=== PATIENT | female | born 1940 | race Caucasian/White ===

== ENCOUNTER 2018-10-06 14:55 | Inpatient (IN) | payer OTHER ==
--- NOTE | 2018-10-06 15:32 | RAD REPORT ---
EXAM DESCRIPTION: RAD - Humerus Left - 10/06/2018 3:26 pm CLINICAL HISTORY: fall FINDINGS: Left humerus and left forearm- multiple views are submitted Osteopenia is noted. Arthritic changes are noted, particularly about the wrist. No acute fracture or dislocation observed.
[2018-10-06 15:41] LABS: Absolute Lymphocytes (CBC) 1.1 K/uL (0.7-4.9); Absolute Monocytes 1.9 K/uL (0.1-1.3); Absolute Neutrophil 16.5 K/uL (1.8-8.0); Basophils % 0.3 % (0-1.3); Eosinophils % 0.1 % (0-4.4); Hematocrit 45.3 % (36.0-45.0); Lymphocytes % 5.5 % (15.3-44.8); MCH 28.5 pg (27.0-35.0); Monocytes % 9.9 % (3.3-12.3); RBC Red Blood Cell Count 5.39 M/uL (3.86-4.86)
[2018-10-06] MEDS ORDERED: FENTANYL CITR 100 MCG/2 ML ONE (15:47)
[2018-10-06] MEDS ORDERED: ONDANSETRON 4 MG/2 ML VIAL ONE (15:48)
[2018-10-06 16:03] LABS: Albumin 4.1 g/dL (3.4-5.0); Bilirubin Total 1.5 mg/dL (0.2-1.0); Potassium 4.2 mmol/L (3.5-5.1)
--- NOTE | 2018-10-06 16:22 | RAD REPORT ---
EXAM DESCRIPTION: CT - Head C Spine Cap Wo Con - 10/06/2018 4:00 pm TECHNIQUE: Computed axial tomography of the head and cervical spine was obtained. Coronal and sagitt al reconstruction was performed Computed axial tomography of the chest, abdomen and pelvis was obtained. Contrast was not requested. All CT scans are performed using dose optimization technique as appropriate and may include automated exposure control or mA/KV adjustment according to patient size. CLINICAL HISTORY: Head and neck injury with chest and abdominal pain status post fall COMPARISON: Abdominal CT February 2018 FINDINGS: An intracranial bleed is not seen. The ventricles are normal in caliber. 2 centimeter low-density area within the right parietal lobe ma y represent an old infarction. Fluid within the sinuses/mastoids is not seen. A cervical fracture is not seen. No dislocation is noted Mild anterior subluxation of C4 on C5 is present. Anterior fusion of C5-C6 is seen. The evaluation of mediastinum, ashish, vessels, solid organs and bowel are limited secondary to the lac k of contrast administration. A mediastinal hematoma is not noted. A pleural effusion is not seen. A lung contusion is not present. The liver,spleen, pancreas, adrenals,kidneys and bladder do not demonstrate a traumatic injury. Small to moderate hiatal hernia. Postsurgical changes involve the right ilium Mild anterior subluxation of L4 on L5. Stable lucency is present within L1 vertebral body. IMPRESSION: 1. No acute intracranial abnormality is seen. 2. A cervical fracture is not visualized. 3. No traumatic abnormality involving the chest/abdomen/pelvis.
[2018-10-06] MEDS ORDERED: TRAMADOL HCL 50 MG TAB ONE (16:33)
[2018-10-06 16:47] LABS: Urine White Blood Cell Casts OK
[2018-10-06 16:48] LABS: Blood Morphology Comment NOT SEEN (NOT SEEN); Platelet Estimate ADEQ
[2018-10-06 16:55] LABS: Urine Blood 1+ (NEG); Urine Glucose TRACE (NEG); Urine Protein 2+ (NEG); Urine pH 6.5 (5.0-7.0)
--- NOTE | 2018-10-06 17:48 | ER ---
Nurse's Notes [facility] Name: Mary Jane Faith Age: 78 yrs Sex: Female : 1940 Arrival Date: 10/06/2018 Time: 14:57 Bed 14 Private MD: Diagnosis: Syncope and collapse;Contusion of left arm;Contusion of left eye;Skin tear right elbow;Hyponatremia Presentation: 10/06 14:59 Presenting complaint: EMS states: pt reports falling form standing last night, family tw2 states this morning because breakfast was out, mastectomy, chf, breast ca, copd, chf, diverticulitis, gerd, hypertension, hyperthyroid, vs hypertensive vs. Transition of care: patient was not received from another setting of care. Onset of symptoms was October 06, 2018. Risk Assessment: Do you want to hurt yourself or someone else? Patient reports no desire to harm self or others. Care prior to arrival: Medication(s) given: zofran IM. 14:59 Method Of Arrival: EMS: [facility] tw2 14:59 Acuity: JOSIE 2 tw2 15:00 Mechanism of Injury: Fall from standing position. Trauma event details: Injury occurred tw2 in the [facility]. 16:31 Initial Sepsis Screen: Does the patient meet any 2 criteria? No. Patient's initial tw2 sepsis screen is negative. Does the patient have a suspected source of infection? No. Patient's initial sepsis screen is negative. Triage Assessment: 15:00 General: Appears in no apparent distress. Behavior is appropriate for age. Pain: tw2 Complains of pain in right arm and left arm and neck. Trauma Activation: Alert Physician: ED Physician; Name: ; Notified At: ; Arrived At: Physician: General Surgeon; Name: ; Notified At: ; Arrived At: Physician: Radiology; Name: ; Notified At: ; Arrived At: Physician: Respiratory; Name: ; Notified At: ; Arrived At: Physician: Lab; Name: ; Notified At: ; Arrived At: Historical: - Allergies: 15:08 Sulfa (Sulfonamide Antibiotics); tw2 15:08 Morphine; tw2 15:08 Cortisone; tw2 15:08 Codeine; tw2 15:08 Latex, Natural Rubber; tw2 - Home Meds: 15:08 Xarelto oral oral [Active]; Aspirin Oral [Active]; Lasix Oral [Active]; Coreg Oral tw2 [Active]; Tramadol Oral [Active]; Nexium Oral [Active]; Lipitor Oral [Active]; Aldactone Oral [Active]; Cipro Oral [Active]; Levofloxacin Oral [Active]; - PMHx: 15:08 CHF; kidney disease; Hypertension; hyperthyroidism; tw2 - PSHx: 15:08 double mastectomy; tw2 - Immunization history:: Adult Immunizations. - Social history:: Smoking status: . - Immunization history: Last tetanus immunization: unknown. - Ebola Screening: : Patient denies travel to an Ebola-affected area in the 21 days before illness onset. Screenin:01 Abuse screen: Denies threats or abuse. Nutritional screening: No deficits noted. tw2 Tuberculosis screening: No symptoms or risk factors identified. Fall Risk Secondary diagnosis (15 points) impaired mobility. Primary Survey: 15:00 A: Airway: patent. Breathing/Chest: Respiratory pattern: regular, Respiratory effort: tw2 spontaneous, unlabored, Breath sounds: clear, bilaterally. Chest inspection: symmetrical rise and fall of the chest. Circulation: Heart tones present. Disability Alert. 16:00 Reassessment Airway Airway Patent Breathing/Chest Respiratory pattern Regular tw2 Respiratory effort Spontaneous Unlabored Circulation Heart tones Present Disability Alert. Secondary Survey: 15:20 HEENT: Face Other bruising noted to left eye brow. Gastrointestinal: Abdomen is flat, tw2 Bowel sounds present in all quadrants. : No signs and/or symptoms were reported regarding the genitourinary system. Musculoskeletal: Range of motion: intact in all extremities. Assessment: 15:00 General: Appears in no apparent distress. Behavior is cooperative, appropriate for age. tw2 Pain: Complains of pain in right arm and left arm. Neuro: Level of Consciousness is awake, alert, obeys commands. 15:00 Cardiovascular: Heart tones S1 S2 Capillary refill is > 3 seconds. Respiratory: Airway tw2 is patent Respiratory effort is even, unlabored, Respiratory pattern is regular, symmetrical, Breath sounds are clear bilaterally. GI: No signs and/or symptoms were reported involving the gastrointestinal system. : No signs and/or symptoms were reported regarding the genitourinary system. EENT: No signs and/or symptoms were reported regarding the EENT system. Derm: Skin is fragile, is thin, has skin tears on noted to b/l arms and legs, tegaderm dressing applied to right elbow and right glez Skin is dry, Skin temperature is cool Bruising that is dark purple, on right arm and left leg and right leg and left arm. Musculoskeletal: Range of motion: intact in all extremities. 15:49 Reassessment: CT order changed to traumagram without contrast due to pt hx of kidney iw disease, per ERP, will also hold of on IV insertion, pt not complaining of pain, family requests to administer only PO meds for now, ERP agrees. 16:20 Reassessment: Patient appears in no apparent distress at this time. Patient and/or tw2 family updated on plan of care and expected duration. Pain level reassessed. Patient is alert, oriented x 3, equal unlabored respirations, skin warm/dry/pink. pt had urinated and missed the bed bennett, pt and bed was cleaned, linens changed new brief applied. 17:12 Reassessment: Patient appears in no apparent distress at this time. Patient and/or tw2 family updated on plan of care and expected duration. Pain level reassessed. Patient is alert, oriented x 3, equal unlabored respirations, skin warm/dry/pink. 18:02 Reassessment: Patient appears in no apparent distress at this time. Patient and/or tw2 family updated on plan of care and expected duration. Pain level reassessed. Patient is alert, oriented x 3, equal unlabored respirations, skin warm/dry/pink. Dr. Cee notified family of need to keep in the hospital and the need for IV in her foot at this time. charge nurse Suzette,ZENOBIA notified at this time. 19:00 Reassessment: Patient appears in no apparent distress at this time. Patient and/or aa1 family updated on plan of care and expected duration. Pain level reassessed. Patient is alert, oriented x 3, equal unlabored respirations, skin warm/dry/pink. Bed assignment received; will call report once floor has completed their shift change report. 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 19:52 Reassessment: Patient appears in no apparent distress at this time. Patient is alert, aa1 oriented x 3, equal unlabored respirations, skin warm/dry/pink. Report given to Grace on 4th floor. Vital Signs: 15:09 BP 127 / 117; Pulse 75; Resp 16; Temp 97.8(TE); Pulse Ox 95% on R/A; Weight 54.43 kg tw2 (M); Height 5 ft. 5 in. (165.10 cm) (R); Pain 8/10; 15:45 BP 139 / 91 LL; Pulse 72; Resp 16; Pulse Ox 98% on R/A; tw2 16:30 BP 130 / 87; Pulse 76; Resp 22; Pulse Ox 98% on R/A; tw2 17:11 BP 141 / 99; Pulse 75; Resp 19; Pulse Ox 100% on R/A; tw2 18:01 BP 126 / 92; Pulse 76; Resp 14; Pulse Ox 100% on R/A; tw2 19:00 BP 134 / 69; Pulse 78; Resp 20; Temp 97.9; Pulse Ox 100% on R/A; aa1 19:58 BP 125 / 56; Pulse 80; Resp 18; Pulse Ox 99% on R/A; aa1 15:09 Body Mass Index 19.97 (54.43 kg, 165.10 cm) tw2 Carolin Coma Score: 15:09 Eye Response: spontaneous(4). Verbal Response: oriented(5). Motor Response: obeys tw2 commands(6). Total: 15. 15:45 Eye Response: spontaneous(4). Verbal Response: oriented(5). Motor Response: obeys tw2 commands(6). Total: 15. 19:00 Eye Response: spontaneous(4). Verbal Response: oriented(5). Motor Response: obeys aa1 commands(6). Total: 15. 19:58 Eye Response: spontaneous(4). Verbal Response: oriented(5). Motor Response: obeys aa1 commands(6). Total: 15. Trauma Score (Adult): 15:09 Eye Response: spontaneous(1); Verbal Response: oriented(1); Motor Response: obeys tw2 commands(2); Systolic BP: > 89 mm Hg(4); Respiratory Rate: 10 to 29 per min(4); Rush Score: 15; Trauma Score: 12 15:45 Eye Response: spontaneous(1); Verbal Response: oriented(1); Motor Response: obeys tw2 commands(2); Systolic BP: > 89 mm Hg(4); Respiratory Rate: 10 to 29 per min(4); Carolin Score: 15; Trauma Score: 12 ED Course: 14:57 Patient arrived in ED. hj 14:58 Ryan Cee MD is Attending Physician. ps1 14:58 Chante Jones RN is Primary Nurse. tw2 14:58 Patient maintains SpO2 saturation greater than 95% on room air. Thermoregulation: warm tw2 blanket given to patient. 15:01 Triage completed. tw2 15:01 Arm band placed on. tw2 15:02 Placed in gown. Side rails up X2. Adult w/ patient. pvc monitor on. Pulse ox on. tw2 NIBP on. Warm blanket given. 15:15 Note: Per Dr. Cee to not wait on labs for CT. vr 15:26 Radiology exam delayed due to IV insertion attempt and/or patient not having jb2 appropriate IV at this time. 15:37 Missed attempt(s): 22 gauge in left antecubital area. per ZENOBIA Ashley, blood collected. tw2 Bleeding controlled, band aid applied, catheter tip intact. 15:55 Humerus Left XRAY In Process Unspecified. EDMS 15:55 Forearm Left XRAY In Process Unspecified. EDMS 16:00 Head C Spine Cap Wo Con In Process Unspecified. EDMS 16:01 CT completed. Patient tolerated procedure well. Patient moved back from CT. nj 17:46 Sofia Jacobsen MD is Hospitalizing Provider. ps1 18:19 Inserted saline lock: 24 gauge in left ,using aseptic technique. ankle. hb 19:00 Report given to ZENOBIA Magana. tw2 19:16 No provider procedures requiring assistance completed. Patient admitted, IV remains in aa1 place. Administered Medications: 16:23 Not Given (no iv line at this): Zofran 4 mg IVP once; over 2 minutes tw2 16:24 Not Given (no iv line at this time, pts family refused multiple sticks): fentaNYL (PF) tw2 25 mcg IVP once 16:29 Drug: traMADol 50 mg Route: PO; tw2 18:04 Follow up: Response: No adverse reaction; Pain is decreased tw2 18:37 Drug: Tetanus-Diphtheria Toxoid Adult 0.5 ml {Religious Activities Director: [employer]. Exp: tw2 11/11/2020. Lot #: [id number]. } Route: IM; Site: left deltoid; 19:17 Follow up: Response: No adverse reaction tw2 Intake: 16:30 PO: 50ml (Water); Total: 50ml. tw2 Outcome: 17:47 Decision to Hospitalize by Provider. ps1 18:29 Patient's length of stay in the Emergency Department was greater than 2 hours. decision tw2 to admitPatient's length of stay extended due to 20:02 Admitted to Med/surg accompanied by tech, family with patient, via stretcher, room 409, aa1 with chart, Report called to Grace 20:02 Condition: stable 20:02 Discharge instructions given to patient, family, Instructed on the need for admit, Demonstrated understanding of instructions. 20:02 Patient left the ED. aa1 Signatures: Dispatcher [employer] EDMS Izzy Lizarraga RN RN aa1 Vazquez Lee jb2 Madelyn Faria, Ondina Mejia RN vr Dion Hanson RN RN hj Baxter, Heather, RN RN hb Wise, Tara, RN RN tw2 Rylan Borja Phillip, MD MD ps1 Corrections: (The following items were deleted from the chart) 15:26 15:[address] via stretcher. vr jb2 16:11 15:09 BP 127 / 117; Pulse 75bpm; Resp 16bpm; Pulse Ox 95% RA; tw2 tw2 18:28 15:00 Neuro: Level of Consciousness is awake, alert, obeys commands, tw2 tw2
--- NOTE | 2018-10-06 17:48 | EDPHYS ---
Physician Documentation [facility] Name: Mary Jane Faith Age: 78 yrs Sex: Female : 1940 Arrival Date: 10/06/2018 Time: 14:57 Bed 14 Private MD: ED Physician Ryan Cee HPI: 10/06 15:08 This 78 yrs old Female presents to ER via EMS with complaints of fall, head ps1 injury. 15:08 fall from standing height, prolonged downtime with pooling in left arm. On xarelto. ps1 Possibly > 12 hours. Pain in left shoulder and ribs bilat. AOx3. Pain rated as moderate. No remitting factors. Worse with movement. . Historical: - Allergies: 15:08 Sulfa (Sulfonamide Antibiotics); tw2 15:08 Morphine; tw2 15:08 Cortisone; tw2 15:08 Codeine; tw2 15:08 Latex, Natural Rubber; tw2 - Home Meds: 15:08 Xarelto oral oral [Active]; Aspirin Oral [Active]; Lasix Oral [Active]; Coreg Oral tw2 [Active]; Tramadol Oral [Active]; Nexium Oral [Active]; Lipitor Oral [Active]; Aldactone Oral [Active]; Cipro Oral [Active]; Levofloxacin Oral [Active]; - PMHx: 15:08 CHF; kidney disease; Hypertension; hyperthyroidism; tw2 - PSHx: 15:08 double mastectomy; tw2 - Immunization history:: Adult Immunizations. - Social history:: Smoking status: . - Immunization history: Last tetanus immunization: unknown. - Ebola Screening: : Patient denies travel to an Ebola-affected area in the 21 days before illness onset. ROS: 15:08 Constitutional: Negative for fever, chills, and weight loss, Eyes: Negative for injury, ps1 pain, redness, and discharge, Cardiovascular: Negative for chest pain, palpitations, and edema, Respiratory: Negative for shortness of breath, cough, wheezing, and pleuritic chest pain, Abdomen/GI: Negative for abdominal pain, nausea, vomiting, diarrhea, and constipation. 15:08 MS/extremity: Positive for contusion, ecchymosis, pain, of the left arm, additionally has pain in lower ribs bilaterally. . Exam: 15:08 Constitutional: This is a well developed, well nourished patient who is awake, alert, ps1 and in no acute distress. 15:08 Respiratory: Lungs have equal breath sounds bilaterally, clear to auscultation and percussion. No rales, rhonchi or wheezes noted. No increased work of breathing, no retractions or nasal flaring. Abdomen/GI: Soft, non-tender, with normal bowel sounds. No distension or tympany. No guarding or rebound. No evidence of tenderness throughout. Back: No spinal tenderness. No costovertebral tenderness. Full range of motion. 15:08 Neuro: Awake and alert, GCS 15, oriented to person, place, time, and situation. Cranial nerves II-XII grossly intact. Sensory grossly intact. Psych: Awake, alert, with orientation to person, place and time. Behavior, mood, and affect are within normal limits. 15:08 Constitutional: The patient appears in no acute distress, alert. 15:08 Head/face: Noted is contusion, that is superficial, of the left eye, erythema, that is mild. 15:08 Chest/axilla: Inspection: normal, Palpation: tenderness, that is moderate, of the diaphragm, Breasts: bilateral mastectomies. 15:08 Skin: Appearance: normal except for affected area, petechiae, noted on the right leg and left leg and left arm, ecchymosis. Vital Signs: 15:09 BP 127 / 117; Pulse 75; Resp 16; Temp 97.8(TE); Pulse Ox 95% on R/A; Weight 54.43 kg tw2 (M); Height 5 ft. 5 in. (165.10 cm) (R); Pain 8/10; 15:45 BP 139 / 91 LL; Pulse 72; Resp 16; Pulse Ox 98% on R/A; tw2 16:30 BP 130 / 87; Pulse 76; Resp 22; Pulse Ox 98% on R/A; tw2 17:11 BP 141 / 99; Pulse 75; Resp 19; Pulse Ox 100% on R/A; tw2 18:01 BP 126 / 92; Pulse 76; Resp 14; Pulse Ox 100% on R/A; tw2 19:00 BP 134 / 69; Pulse 78; Resp 20; Temp 97.9; Pulse Ox 100% on R/A; aa1 19:58 BP 125 / 56; Pulse 80; Resp 18; Pulse Ox 99% on R/A; aa1 15:09 Body Mass Index 19.97 (54.43 kg, 165.10 cm) tw2 Hume Coma Score: 15:09 Eye Response: spontaneous(4). Verbal Response: oriented(5). Motor Response: obeys tw2 commands(6). Total: 15. 15:45 Eye Response: spontaneous(4). Verbal Response: oriented(5). Motor Response: obeys tw2 commands(6). Total: 15. 19:00 Eye Response: spontaneous(4). Verbal Response: oriented(5). Motor Response: obeys aa1 commands(6). Total: 15. 19:58 Eye Response: spontaneous(4). Verbal Response: oriented(5). Motor Response: obeys aa1 commands(6). Total: 15. Trauma Score (Adult): 15:09 Eye Response: spontaneous(1); Verbal Response: oriented(1); Motor Response: obeys tw2 commands(2); Systolic BP: > 89 mm Hg(4); Respiratory Rate: 10 to 29 per min(4); Hume Score: 15; Trauma Score: 12 15:45 Eye Response: spontaneous(1); Verbal Response: oriented(1); Motor Response: obeys tw2 commands(2); Systolic BP: > 89 mm Hg(4); Respiratory Rate: 10 to 29 per min(4); Hume Score: 15; Trauma Score: 12 MDM: 15:14 Patient medically screened. ps1 17:47 Data reviewed: vital signs, nurses notes, lab test result(s), EKG, radiologic studies, ps1 and as a result, I will admit patient. Counseling: I had a detailed discussion with the patient and/or guardian regarding: the historical points, exam findings, and any diagnostic results supporting the discharge/admit diagnosis, lab results, radiology results, the need for further work-up and treatment in the hospital. 10/06 15:08 Order name: CBC with Diff; Complete Time: 16:49 ps1 10/06 15:08 Order name: Creatinine for Radiology; Complete Time: 16:23 ps1 10/06 15:08 Order name: Type And Screen; Complete Time: 16:23 ps1 10/06 15:08 Order name: CMP; Complete Time: 16:23 ps1 10/06 15:08 Order name: CK; Complete Time: 16:23 [facility] 10/06 16:27 Order name: Urine Dipstick--Ancillary (enter results); Complete Time: 17:21 10/06 15:08 Order name: Humerus Left XRAY; Complete Time: 15:56 [facility] 10/06 15:08 Order name: Forearm Left XRAY [facility] 10/06 15:56 Order name: Head C Spine Cap Wo Con; Complete Time: 16:26 [facility] 10/06 16:46 Order name: CBC Smear Scan; Complete Time: 16:49 [facility] 10/06 17:30 Order name: ABO/RH no charge; Complete Time: 17:43 [facility] 10/06 15:08 Order name: Labs collected and sent; Complete Time: 15:37 [facility] 10/06 15:08 Order name: Urine Dipstick-Ancillary (obtain specimen); Complete Time: 16:24 ps1 Administered Medications: 16:23 Not Given (no iv line at this): Zofran 4 mg IVP once; over 2 minutes tw2 16:24 Not Given (no iv line at this time, pts family refused multiple sticks): fentaNYL (PF) tw2 25 mcg IVP once 16:29 Drug: traMADol 50 mg Route: PO; tw2 18:04 Follow up: Response: No adverse reaction; Pain is decreased tw2 18:37 Drug: Tetanus-Diphtheria Toxoid Adult 0.5 ml {Brewing Director: [employer]. Exp: tw2 11/11/2020. Lot #: [id number]. } Route: IM; Site: left deltoid; 19:17 Follow up: Response: No adverse reaction tw2 Disposition: 10/06/18 17:47 Hospitalization ordered by Sofia Jacobsen for Observation. Preliminary diagnosis are Syncope and collapse, Contusion of left arm, Contusion of left eye, Skin tear right elbow, Hyponatremia. - Bed requested for Telemetry/MedSurg (observation). - Status is Observation. aa1 - Condition is Stable. - Problem is new. - Symptoms have improved. UTI on Admission? No Signatures: Dispatcher [employer] EDMS Elizabeth Babin Alissa, RN RN aa1 Chante Jones RN RN tw2 Ryan Cee MD MD ps1 Corrections: (The following items were deleted from the chart) 15:56 15:54 Head C Spine CAP W Con+CT.RAD.BRZ ordered. EDMS EDMS 18:49 17:47 Hospitalization Ordered by Sofia Jacobsen MD for Observation. Preliminary bd diagnosis is Syncope and collapse; Contusion of left arm; Contusion of left eye; Skin tear right elbow; Hyponatremia. Bed requested for Telemetry/MedSurg (observation). Status is Observation. Condition is Stable. Problem is new. Symptoms have improved. UTI on Admission? No. ps1 20:02 18:49 10/06/2018 17:47 Hospitalization Ordered by Sofia Jacobsen MD for Observation. aa1 Preliminary diagnosis is Syncope and collapse; Contusion of left arm; Contusion of left eye; Skin tear right elbow; Hyponatremia. Bed requested for Telemetry/MedSurg (observation). Status is Observation. Condition is Stable. Problem is new. Symptoms have improved. UTI on Admission? No. bd
[2018-10-06] MEDS ORDERED: TETANUS & DIPHTHERIA TOX,ADULT 0.5 ML VIAL ONE (18:40)
[2018-10-06] MEDS ORDERED: ONDANSETRON 4 MG/2 ML VIAL IV PRN (20:43)
[2018-10-06] MEDS: NA CHLORIDE 0.9% 1,000 ML IV SCH (21:39)
[2018-10-06] MEDS: ACETAMINOPHEN 500 MG TAB PO PRN (22:03)
--- NOTE | 2018-10-06 22:49 | P.HP ---
Certification for Inpatient Patient admitted to: Observation With expected LOS: <2 Midnights Practitioner: I am a practitioner with admitting privileges, knowledge of patient current condition, hospital course, and medical plan of care. Services: Services provided to patient in accordance with Admission requirements found in Title 42 Section 412.3 of the Code of Federal Regulations Patient History Date of Service: 10/06/18 Reason for admission: Syncope History of Present Illness: Ms Faith is an 78-year-old woman with history of multiple medical problems including ICD placement, who came to ED after sustaining a fall at home. She says that prior to the fall, she start feeling dizzy. She denied any chest pain or shortness of breath. She also denied any palpitation or heart racing feeling. No history of fever or chills either. The patient is follow-up by who does the interrogation of her ICD routinely. Lab work remarkable for leukocytosis 18.6 K, sodium is 127. CT head/neck/chest/abdomen and pelvis showed not acute abnormality. Allergies codeine Allergy (Verified 10/06/18 21:42) Itching cortisone Allergy (Verified 10/06/18 21:42) Shortness of breath latex Allergy (Verified 10/06/18 21:42) Itching/Hives/Rash morphine Allergy (Verified 10/06/18 21:42) hallucinations prednisone Allergy (Verified 10/06/18 21:42) Nausea/Vomiting Sulfa (Sulfonamide Antibiotics) Allergy (Verified 10/06/18 21:42) Rash Home Medications: Atorvastatin Calcium [Lipitor] 20 mg PO BEDTIME 12/04/16 Carvedilol [Coreg] 25 mg PO BID 12/04/16 Eszopiclone [Lunesta] 2 mg PO BEDTIME 12/04/16 Furosemide [Lasix] 20 mg PO DAILY 12/04/16 Isosorbide Mononitrate [Isosorbide Mononitrate ER] 30 mg PO DAILY 12/04/16 Levothyroxine Sodium 50 mcg PO DAILY 12/04/16 Spironolactone [Aldactone] 25 mg PO DAILY 12/04/16 Tramadol HCl [Ultram] 50 mg PO PRN PRN 12/04/16 Trazodone [Desyrel] 100 mg PO BEDTIME 12/04/16 Aspirin 1 tab PO DAILY 10/06/18 Linaclotide [Linzess] 1 cap PO BEDTIME 10/06/18 - Past Medical/Surgical History Has patient received pneumonia vaccine in the past: No Diabetic: No -: History of hypertension, cardiac arrhythmias -: Fusions neck -: hyperthyroidism -: COPD -: GERD -: Diverticulitis -: carpal tunnel -: ICD placement -: Patient is had previous left mastectomy, cholecystectomy in the past -: knee surgery -: back surgery -: left kidney removed -: hysterectomy -: bilateral mastectomy -: hernia surgery x 3 -: thyroid surgery Psychosocial/ Personal History: Her about a month ago. - Family History Mother History Unknown: Yes Father -: Diabetes Sister -: Heart disease, Hypertension, Diabetes, Cancer - Social History Smoking Status: Former smoker Alcohol use: No CD- Drugs: No Caffeine use: Yes Place of Residence: Home Review of Systems 10-point ROS is otherwise unremarkable Physical Examination - Vital Signs Temperature: 97.8 F Blood Pressure: 131/69 Pulse: 77 Respirations: 20 Pulse Ox (%): 97 - Physical Exam General: Alert, In no apparent distress HEENT: PERRLA, Mucous membr. moist/pink, EOMI, Sclerae nonicteric Neck: Supple, 2+ carotid pulse no bruit, No LAD, Without JVD or thyroid abnormality Respiratory: Clear to auscultation bilaterally, Normal air movement Cardiovascular: Normal S1 S2, No gallops Gastrointestinal: Normal bowel sounds, No tenderness Musculoskeletal: No tenderness Integumentary: No rashes, Other (Bilateral upper extremity bruises.) Neurological: Normal speech, Normal strength at 5/5 x4 extr, Normal tone, Normal affect Lymphatics: No axilla or inguinal lymphadenopathy - Studies Laboratory Data (last 24 hrs) 10/06/18 15:25: Sodium 127 L, Potassium 4.2, BUN 16, Creatinine 0.90, Glucose 121 H, Total Bilirubin 1.5 H, AST 53 H, ALT 49, Alkaline Phosphatase 49 10/06/18 15:25: Creatinine 0.90 10/06/18 15:25: WBC 19.6 H, Hgb 15.4 H, Hct 45.3 H, Plt Count 316 Assessment and Plan - Problems (Diagnosis) (1) Fall Current Visit: Yes Status: Acute Qualifiers: Encounter type: initial encounter Qualified Code(s): W19.XXXA - Unspecified fall, initial encounter (2) History of implantable cardioverter-defibrillator (ICD) placement Current Visit: Yes Status: Acute (3) Hypertension Current Visit: Yes Status: Acute Qualifiers: Hypertension type: essential hypertension Qualified Code(s): I10 - Essential (primary) hypertension - Plan The patient will be admitted to the hospital due to ground level fall. There is no sign of bold fracture or laxation. Will order Batsheva enzymes, echo, cardiology evaluation. - Advance Directives Does patient have a Living Will: No Does patient have a Durable POA for Healthcare: Yes - Code Status/Comfort Care Code Status Assessed: Yes Code Status: Full Code
[2018-10-06] MEDS ORDERED: TRAMADOL HCL 50 MG TAB PO PRN (23:20)
[2018-10-06 23:23] LABS: Thyroid Stimulating Hormone 1.83 uIU/mL (0.360-3.740); Troponin I 0.06 ng/mL (0.0-0.045)
[2018-10-06] MEDS: TRAZODONE 50 MG TABLET PO SCH (23:50)
[2018-10-07] MEDS ORDERED: TRAMADOL HCL 50 MG TAB PO PRN ×2 (00:01→06:00)
[2018-10-07] MEDS ORDERED: ESZOPICLONE 1 MG TAB PO ONE ×2 (01:59→22:00)
[2018-10-07 04:55] LABS: Urine Appearance CLEAR; Urine Bilirubin NEGATIVE (NEG); Urine Blood NEGATIVE (NEG); Urine Color YELLOW; Urine Glucose NEGATIVE (NEG); Urine Protein 1+ (NEG); Urine Specific Gravity 1.015 (1.005-1.030); Urine pH 6.5 (5.0-7.0)
[2018-10-07 04:58] LABS: Urine Microscopic Reflex ORDER UMIC
[2018-10-07] MEDS: LEVOTHYROXINE SOD 0.05 MG TABLET PO SCH (05:21)
[2018-10-07 05:38] LABS: Urine Bacteria <20 /HPF (<20); Urine Culture Reflex Order NOT NEEDED; Urine RBC NONE SEEN /HPF (NONE SEEN)
[2018-10-07 06:33] LABS: Absolute Lymphocytes (CBC) 1.4 K/uL (0.7-4.9); Absolute Monocytes 1.8 K/uL (0.1-1.3); Absolute Neutrophil 8.2 K/uL (1.8-8.0); Basophils % 0.2 % (0-1.3); Eosinophils % 0.1 % (0-4.4); Hematocrit 37.9 % (36.0-45.0); Lymphocytes % 12.4 % (15.3-44.8); MCH 28.6 pg (27.0-35.0); MCV 83.1 fL (80-100); MPV 7.8 fL (7.6-11.3); RBC Red Blood Cell Count 4.56 M/uL (3.86-4.86)
[2018-10-07 06:43] LABS: Bilirubin Total 1.1 mg/dL (0.2-1.0); Magnesium 1.9 mg/dL (1.8-2.4); Phosphorus 3.4 mg/dL (2.5-4.9); Potassium 3.7 mmol/L (3.5-5.1); Protein, Total 5.4 g/dL (6.4-8.2)
[2018-10-07] MEDS ORDERED: POTASSIUM CL SA 10 MEQ TAB PO ONE (07:00)
[2018-10-07] MEDS ORDERED: INFLUENZA VACCINE (for 3y+) 0.5 ML DOSE IMVAC ONE (08:00)
[2018-10-07] MEDS ORDERED: PNEUMOCOCCAL VACCINE 0.5 ML IMVAC ONE (08:00)
--- NOTE | 2018-10-07 09:19 | RAD REPORT ---
EXAM DESCRIPTION: RAD - Forearm Left - 10/06/2018 3:26 pm CLINICAL HISTORY: Fall FINDINGS: Left humerus and left forearm- multiple views are submitted Osteopenia is noted. Arthritic changes are noted, particularly about the wrist. No acute fracture or dislocation observed.
--- NOTE | 2018-10-07 11:14 | ECHO ---
HEIGHT: 5 ft 5 in WEIGHT: 115 lb 11.2 oz DATE OF STUDY: 10/07/[address]: Sofia Jacobsen MD 2-DIMENSIONAL: YES M.MODE: YES DOPPLER: YES COLOR FLOW: YES TDS: YES PORTABLE: NO DEFINITY: NO BUBBLE STUDY: NO DIAGNOSIS: SYNCOPE CARDIAC HISTORY: CATHERIZATION: NO SURGERY: NO PROSTHETIC VALVE: NO PACEMAKER: YES MEASUREMENTS (cm) DIASTOLIC (NORMALS) SYSTOLIC (NORMALS) IVSd 0.9 (0.6-1.2) LA Diam 3.8 (1.9-4.0) LVEF 46% LVIDd 5.8 (3.5-5.7) LVIDs 4.5 (2.0-3.5) %FS 23% LVPWd 1.0 (0.6-1.2) Ao Diam 2.9 (2.0-3.7) 2 DIMENSIONAL ASSESSMENT: RIGHT ATRIUM: DILATED LEFT ATRIUM: DILATED RIGHT VENTRICLE: PACEMAKER LEFT VENTRICLE: DILATED TRICUSPID VALVE: NORMAL MITRAL VALVE: NORMAL PULMONIC VALVE: NORMAL AORTIC VALVE: NORMAL PERICARDIAL EFFUSION: NONE AORTIC ROOT: NORMAL LEFT VENTRICULAR WALL MOTION: MILD GLOBAL HYPOKINESIS. DOPPLER/COLOR FLOW: MILD TO MODERATE MITRAL REGURGITATION. COMMENTS: MILDLY DEPRESSED LEFT VENTRICULAR EJECTION FRACTION. DILATED LEFT ATRIUM AND LEFT VENTRICLE. PACKEMAKER IN RIGHT VENTRICLE. MILD TO MODERATE MITRAL REGURGITATION. TECHNOLOGIST: Austin LINTON
--- NOTE | 2018-10-07 12:33 | CON ---
CARDIOLOGY CONSULT Additional Attending Physician: Dr. Vadim Mariscal Chief Complaint: Dizziness and near syncope. History Of Present Illness: Ms. Faith is known to have hypertension, congestive heart failure, nonis chemic cardiomyopathy, cardiac caths were normal in the past. She also has hypothyroidism and she vargas s a defibrillator. It is actually her third defibrillator. It was implanted about 5 years ago. She has not been shocked, but she has had a lot of orthostatic symptoms recently. Her fall yesterday oc curred after standing and being upright for a few minutes after being sitting for an extended period of time. Outpatient Medications: Levothyroxine, isosorbide mononitrate, atorvastatin, spironolactone, furosem luther, trazodone, carvedilol, Lunesta, tramadol, linaclotide, aspirin and Nexium. Social History: She uses no tobacco. Allergies: ALLERGIC TO CODEINE, CORTISONE, LASIX, MORPHINE, AND PREDNISONE. Physical Examination: Vital Signs: 5 feet 5, 115 pounds. Skin: She has some bruising on her left shoulder and left maxillary area. HEENT: Otherwise normal. Neck: No carotid bruit. Lungs: Clear. Heart: Within normal limits. Abdomen: Soft. Extremities: No edema. Distal pulses diminished. Diagnostic Data: Her electrocardiogram is not available for review, not sure why it is not. Impression: The patient's syncope is most likely from orthostasis. I wonder if she could be removed from the isosorbide, perhaps we should get orthostatic vital signs. We should interrogate the defib rillator. It is a [employer] device. I think, the cause of her syncope is fairly clear based on the history. There are no fractures and probably reducing some of the medicines that make her blood pres sure get low would be to her benefit. SH/MODL Voice ID: [id number] Report ID: [id number]
--- NOTE | 2018-10-07 13:10 | RAD REPORT ---
EXAM DESCRIPTION: Kathy Single View10/07/2018 1:03 pm CLINICAL HISTORY: Hypertension COMPARISON: 2017 FINDINGS: The lungs are hyperaerated. The lungs appear clear of acute infiltrate. The heart is mildly enlarged. Pacemaker leads are in kajal ce. Small to moderate hiatal hernia IMPRESSION: No acute abnormalities displayed
--- NOTE | 2018-10-07 13:17 | P.PN ---
Subjective Date of Service: 10/07/18 Chief Complaint: Syncope Pt seen and examined at bedside with RN. Chart Reviewed. Case DW with patient at bedside. Pt has no complains to offer overnight. States has been having cough this AM. Review of Systems 10-point ROS is otherwise unremarkable Physical Examination - Vital Signs Temperature: 97.9 F Blood Pressure: 137/82 Pulse: 80 Respirations: 20 Pulse Ox (%): 96 - Physical Exam General: Alert, Acute distress HEENT: Atraumatic, PERRLA, EOMI Neck: Supple, JVD not distended Respiratory: Clear to auscultation bilaterally, Normal air movement Cardiovascular: Regular rate/rhythm, Normal S1 S2 Gastrointestinal: Normal bowel sounds, No tenderness Musculoskeletal: No tenderness Integumentary: No rashes Neurological: Normal speech, Normal tone, Normal affect Lymphatics: No axilla or inguinal lymphadenopathy - Studies Laboratory Data (last 24 hrs) 10/06/18 15:25: Sodium 127 L, Potassium 4.2, BUN 16, Creatinine 0.90, Glucose 121 H, Total Bilirubin 1.5 H, AST 53 H, ALT 49, Alkaline Phosphatase 49 10/06/18 15:25: Creatinine 0.90 10/06/18 15:25: WBC 19.6 H, Hgb 15.4 H, Hct 45.3 H, Plt Count 316 Medications List Reviewed: Yes Assessment And Plan - Current Problems (Diagnosis) (1) Syncope Current Visit: Yes Status: Acute Plan: Syncope Most likely 2.2 to Orthostatis -cardiology consulted. Appreciate Reccs -Stop Imdur -Interrogate the defibrillator -Lab work and other imaging study negative -PT consulted as well -Orthostatic vitals negative Qualifiers: Syncope type: vasovagal syncope Qualified Code(s): R55 - Syncope and collapse (2) Fall Onset Date: 10/07/18 Current Visit: Yes Status: Acute Plan: Syncopal Fall -Fall precautions given -PT consulted Qualifiers: Encounter type: initial encounter Qualified Code(s): W19.XXXA - Unspecified fall, initial encounter (3) CHF (congestive heart failure) Current Visit: Yes Status: Chronic Qualifiers: Heart failure type: combined systolic and diastolic Heart failure chronicity: chronic Qualified Code(s): I50.42 - 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) heart failure (4) History of implantable cardioverter-defibrillator (ICD) placement Current Visit: Yes Status: Chronic (5) Hypertension Onset Date: 10/07/18 Current Visit: Yes Status: Chronic Qualifiers: Hypertension type: essential hypertension Qualified Code(s): I10 - Essential (primary) hypertension (6) Carcinoma of right breast Onset Date: 12/06/16 Current Visit: No Status: Chronic Qualifiers: Breast location: unspecified site of breast Estrogen receptor status: unspecified Patient sex: female Qualified Code(s): C50.911 - Malignant neoplasm of unspecified site of right female breast Discharge Plan: Home Plan to discharge in: 48 Hours - Code Status/Comfort Care Code Status Assessed: Yes Critical Care: No
--- NOTE | 2018-10-07 13:23 | PN ---
Mrs. Faith's defibrillator interrogation has been done. There are no abnormalities of device functio n, its battery is good. All leads work normally. We can conclude safely. It was not any arrhythmia event or a defibrillator pacemaker malfunction that caused her to get lightheaded and fall. The dev ice indicates she is mildly dehydrated and I suspect she needs to stop the isosorbide and reduce one of her diuretic, she is on 2, and she would probably have a better chance of not fainting. I think i f the other tests today look good, she would be okay to be discharged home later today. HARLEY/LORENZA Voice ID: [id number] Report ID: [id number]
[2018-10-07] MEDS: ASPIRIN 81 MG CHEWABLE TABLET PO SCH (13:44)
[2018-10-07] MEDS: FUROSEMIDE 20 MG TABLET PO SCH (13:44)
[2018-10-07] MEDS: CARVEDILOL 25 MG TAB PO SCH ×2 (13:46→21:55)
[2018-10-07] MEDS: NA CHLORIDE 0.9% 1,000 ML IV SCH (13:46)
[2018-10-07] MEDS: ACETAMINOPHEN 500 MG TAB PO PRN (18:48)
--- NOTE | 2018-10-07 19:15 | CON ---
Date of Consultation: 10/07/2018 NEPHROLOGY CONSULTATION Reason For Consult: Hyponatremia. History Of Present Illness: Ms. Faith is an 78-year-old female with past medical history significant for history of single nephrectomy for renal cell carcinoma, history of COPD, who lives alone at home , presented to [facility] after she was found by her family and she had sustained a fall. T he patient is found to have bruising of her hands and legs, however, CT scan was done which did not s how any evidence of any acute fracture. CT head was negative. She has no cervical fracture, no abno rmality was noted. She has chronic hyponatremia and her sodium was noted to be lower than her normal of 131-132. Nephrology is being consulted for further evaluation. The patient takes multiple medications including Lunesta, trazodone, and tramadol, all at night. She lives alone and gets confused and takes her medications whenever she feels like. She states that sh e remembers turning to switch off and next thing she know she is on the floor and called her family f or help. Past Medical History: Significant for history of chronic hyponatremia, history of COPD, history of n ephrectomy for renal cell carcinoma, history of breast cancer status post mastectomy with lymphedema of the right arm. She also has history of congestive heart failure, status post AICD placement and r ecurrent episodes of diverticulitis, hysterectomy, knee surgery and thyroid surgery. Social History: She lives alone. Her about a year and a half ago. Does suffer from chronic depression. Family History: Noncontributory. Review of Systems: Positive for some wheezing, shortness of breath and also some coughing. All other review of systems are negative. Physical Examination: Vital Signs: Showing temperature of 97.9, pulse rate of 73, respiratory rate of 20, blood pressure 1 25/66. General: She appears frail, elderly. HEENT: Atraumatic head. Bruising noted all over her body, mostly pronounced on her arms and her leg s. Lungs: Clear to auscultation. Heart: Revealed regular rate and rhythm. Abdomen: Soft. Extremities: Did not to show any evidence of edema. Diagnostic Data: Chest x-ray was done today which shows no acute abnormalities. Laboratory Data: Showing sodium improved to 129, potassium 3.7, chloride of 94, BUN of 12, and creat inine of 0.7. CBC showing WBC count of 11,000, improving from 19,000, hemoglobin of 13, hematocrit o f 37.9, and platelet count of 223. Current Medications: Include normal saline at 75 cc an hour. She is getting Lunesta 1 mg at bedtime , Lasix 20 mg a day, atorvastatin, spironolactone 25 mg a day, and trazodone 100 mg at bedtime. In a ddition to that, she was also getting tramadol which has been since stopped. 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 2.Possibly bronchitis leading to some shortness of breath. The patient is on Symbicort at home. We will go ahead and order Symbicort to help with her shortness of breath and we will go ahead and cont inue IV fluids to prevent further volume overload at this time. Her rhabdomyolysis is improving and she has no evidence of any acute fracture. Continue all other medications and plan of care. EARNESTINE/LORENZA Voice ID: [id number] Report ID: [id number]
[2018-10-07] MEDS: LINACLOTIDE PO SCH (21:00)
[2018-10-07] MEDS: DULERA 100/5 (MOMETASONE/FORMOTEROL) INHALER IH SCH (21:00)
[2018-10-07] MEDS: TRAZODONE 50 MG TABLET PO SCH (21:55)
[2018-10-07] MEDS: ATORVASTATIN 20 MG TAB PO SCH (21:55)
[2018-10-07] MEDS ORDERED: TRAMADOL HCL 50 MG TAB PO ONE (22:00)
[2018-10-08] MEDS: ACETAMINOPHEN 500 MG TAB PO PRN ×4 (02:27→22:07)
[2018-10-08] MEDS: LEVOTHYROXINE SOD 0.05 MG TABLET PO SCH (05:57)
[2018-10-08] MEDS: PANTOPRAZOLE 40MG TABLET PO SCH (05:57)
[2018-10-08 06:24] LABS: Absolute Lymphocytes (CBC) 1.4 K/uL (0.7-4.9); Absolute Monocytes 1.4 K/uL (0.1-1.3); Absolute Neutrophil 5.8 K/uL (1.8-8.0); Eosinophils % 0.2 % (0-4.4); Hematocrit 38.6 % (36.0-45.0); MCH 28.9 pg (27.0-35.0); MCV 85.2 fL (80-100); MPV 7.8 fL (7.6-11.3); RBC Red Blood Cell Count 4.53 M/uL (3.86-4.86)
[2018-10-08 06:40] LABS: Bilirubin Total 0.9 mg/dL (0.2-1.0); Potassium 3.9 mmol/L (3.5-5.1); Protein, Total 5.5 g/dL (6.4-8.2)
[2018-10-08] MEDS ORDERED: POTASSIUM CL SA 10 MEQ TAB PO ONE (06:58)
[2018-10-08] MEDS: DULERA 100/5 (MOMETASONE/FORMOTEROL) INHALER IH SCH ×2 (09:00→21:00)
[2018-10-08] MEDS ORDERED: ISOSORBIDE MONO SR 30 MG TAB PO SCH (09:00)
[2018-10-08] MEDS: SPIRONOLACTONE 25 MG TABLET PO SCH (09:38)
[2018-10-08] MEDS: FUROSEMIDE 20 MG TABLET PO SCH (09:38)
[2018-10-08] MEDS: CARVEDILOL 25 MG TAB PO SCH ×2 (09:38→21:44)
[2018-10-08] MEDS: ASPIRIN 81 MG CHEWABLE TABLET PO SCH (09:38)
[2018-10-08] MEDS ORDERED: INFLUENZA VACCINE (for 3y+) 0.5 ML DOSE IMVAC ONE (10:00)
--- NOTE | 2018-10-08 14:30 | P.PN ---
Subjective Date of Service: 10/08/18 Chief Complaint: Syncope Pt seen and examined at bedside with RN. Chart Reviewed. Case DW with patient at bedside. Pt has no complains to offer overnight.This AM states does have some Dizziness and weakness but doing well overall. Review of Systems 10-point ROS is otherwise unremarkable Physical Examination - Vital Signs Temperature: 97.9 F Blood Pressure: 140/83 Pulse: 69 Respirations: 20 Pulse Ox (%): 95 - Physical Exam General: Alert, In no apparent distress HEENT: Atraumatic, PERRLA, EOMI Neck: Supple, JVD not distended Respiratory: Clear to auscultation bilaterally, Normal air movement Cardiovascular: Regular rate/rhythm, Normal S1 S2 Gastrointestinal: Normal bowel sounds, No tenderness Musculoskeletal: No tenderness Integumentary: No rashes Neurological: Normal speech, Normal tone, Normal affect Lymphatics: No axilla or inguinal lymphadenopathy - Studies Medications List Reviewed: Yes Assessment And Plan - Current Problems (Diagnosis) (1) Syncope Current Visit: Yes Status: Acute Plan: Syncope Most likely 2.2 to Orthostatis -cardiology consulted. Appreciate Reccs -Stop Imdur for now -Interrogate the defibrillator -Lab work and other imaging study negative -PT consulted. Pt working with PT -Orthostatic vitals negative Qualifiers: Syncope type: vasovagal syncope Qualified Code(s): R55 - Syncope and collapse (2) Fall Onset Date: 10/07/18 Current Visit: Yes Status: Acute Plan: Syncopal Fall -Fall precautions given -PT consulted Qualifiers: Encounter type: initial encounter Qualified Code(s): W19.XXXA - Unspecified fall, initial encounter (3) CHF (congestive heart failure) Current Visit: Yes Status: Chronic Qualifiers: Heart failure type: combined systolic and diastolic Heart failure chronicity: chronic Qualified Code(s): I50.42 - 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) heart failure (4) History of implantable cardioverter-defibrillator (ICD) placement Current Visit: Yes Status: Chronic (5) Hypertension Onset Date: 10/07/18 Current Visit: Yes Status: Chronic Qualifiers: Hypertension type: essential hypertension Qualified Code(s): I10 - Essential (primary) hypertension (6) Carcinoma of right breast Onset Date: 12/06/16 Current Visit: No Status: Chronic Qualifiers: Breast location: unspecified site of breast Estrogen receptor status: unspecified Patient sex: female Qualified Code(s): C50.911 - Malignant neoplasm of unspecified site of right female breast - Plan In clinical improvement at this time. Anticipate discharge in 24-48 hr. Discharge Plan: Home Plan to discharge in: 48 Hours - Code Status/Comfort Care Code Status Assessed: Yes Critical Care: No
[2018-10-08] MEDS: LINACLOTIDE PO SCH (14:39)
[2018-10-08] MEDS: HOME MED 1 EA UNK (Budesonide/Formoterol Fumarate [Symbicort 80-4.5 Mcg Inhaler] 2 PUFF) IH SCH ×2 (21:00)
[2018-10-08] MEDS: ATORVASTATIN 20 MG TAB PO SCH (21:44)
[2018-10-08] MEDS: TRAZODONE 50 MG TABLET PO SCH (21:46)
--- NOTE | 2018-10-08 22:00 | P.PN ---
Date of Service: 10/08/18 Vital Signs Temp Pulse Resp BP Pulse Ox 97.4 F 85 18 123/57 L 94 10/08/18 20:00 10/08/18 21:44 10/08/18 20:00 10/08/18 21:44 10/08/18 20:00 Medications Acetaminophen (Tylenol -Extra Strength) 500 mg PO Q4HP PRN PRN Reason: [id number] Stop: 11/05/18 20:44 Last Admin: 10/08/18 10:45 Dose: 500 mg Aspirin (Aspirin Chewable) 81 mg PO DAILY SHANTI Stop: 11/07/18 09:01 Last Admin: 10/08/18 09:38 Dose: 81 mg Atorvastatin Calcium (Lipitor) 20 mg PO BEDTIME SHANTI Stop: 11/06/18 21:01 Last Admin: 10/08/18 21:44 Dose: 20 mg Carvedilol (Coreg) 25 mg PO BID SHANTI Stop: 11/06/18 21:01 Last Admin: 10/08/18 21:44 Dose: 25 mg Furosemide (Lasix) 20 mg PO DAILY SHANTI Stop: 11/07/18 09:01 Last Admin: 10/08/18 09:38 Dose: 20 mg Home Med (Linaclotide [Linzess]) 1 cap PO BEDTIME SHANTI Stop: 11/06/18 21:01 Last Admin: 10/08/18 14:39 Dose: 1 cap Home Med (Budesonide/Formoterol Fumarate [Symbicort 80-4.5 Mcg Inhaler]) 2 puff IH BID SHANTI Stop: 11/07/18 21:01 Levothyroxine Sodium (Synthroid) 0.05 mg PO DAILY@0600 SHANTI Stop: 11/06/18 06:01 Last Admin: 10/08/18 05:57 Dose: 0.05 mg Ondansetron HCl (Zofran) 4 mg IV Q6HP PRN PRN Reason: NAUSEA / VOMITING Stop: 11/05/18 20:44 Pantoprazole Sodium (Protonix Tab) 40 mg PO DAILYAC SHANTI Stop: 11/07/18 06:31 Last Admin: 10/08/18 05:57 Dose: 40 mg Spironolactone (Aldactone) 25 mg PO DAILY SHANTI Stop: 11/07/18 09:01 Last Admin: 10/08/18 09:38 Dose: 25 mg Trazodone HCl (Desyrel) 100 mg PO BEDTIME SHANTI Stop: 11/06/18 21:01 Last Admin: 10/08/18 21:46 Dose: 100 mg Assessment/ Plan: Nephrology. Feeling better today. No acute events overnight. CPS stable without CP or SOB. Vitals, medications, blood work and imaging reviewed in the chart. NAD. NCAT. MMM. Neck supple. CTA. RRR. Soft Abd. No C/C/E. No rash. Scattered ecchymoses. AAO. EXAM DESCRIPTION: Kathy Single View10/07/2018 1:03 pm CLINICAL HISTORY: Hypertension COMPARISON: 2017 FIINGS: The lungs are hyperaerated. The lungs appear clear of acute infiltrate. The heart is mildly enlarged. Pacemaker leads are in place. Small to moderate hiatal hernia IMPRESSION: No acute abnormalities displayed A/ Hyponatremia/ SIADH. Proteinuria. Syncope. HTN. Systolic CHF, chronic. Hypocalcemia. Moderate protein calorie malnutrition. P/ Continue current POC and Medications. Agree with diuretics. Potassium replacement as needed. No NSAIDs. AM labs. Daily weight.
[2018-10-09] MEDS: ACETAMINOPHEN 500 MG TAB PO PRN ×2 (03:51→19:06)
[2018-10-09] MEDS: LEVOTHYROXINE SOD 0.05 MG TABLET PO SCH (06:32)
[2018-10-09] MEDS: PANTOPRAZOLE 40MG TABLET PO SCH (06:32)
[2018-10-09 07:14] LABS: Absolute Lymphocytes (CBC) 1.4 K/uL (0.7-4.9); Absolute Monocytes 1.2 K/uL (0.1-1.3); Absolute Neutrophil 4.9 K/uL (1.8-8.0); Basophils % 0.5 % (0-1.3); Eosinophils % 0.5 % (0-4.4); Hematocrit 37.9 % (36.0-45.0); Lymphocytes % 18.3 % (15.3-44.8); MCH 28.4 pg (27.0-35.0); MCV 84.3 fL (80-100); MPV 7.6 fL (7.6-11.3); Monocytes % 15.5 % (3.3-12.3); RBC Red Blood Cell Count 4.49 M/uL (3.86-4.86)
[2018-10-09 07:20] LABS: Bilirubin Total 0.8 mg/dL (0.2-1.0); Magnesium 1.7 mg/dL (1.8-2.4); Phosphorus 3.4 mg/dL (2.5-4.9); Potassium 3.6 mmol/L (3.5-5.1); Protein, Total 5.3 g/dL (6.4-8.2); Uric Acid 2.4 mg/dL (2.6-6.0)
[2018-10-09] MEDS ORDERED: MAGNESIUM SULFATE 1 gm IVPB 1 GM/100 ML BAG IV ONE ×2 (08:00)
[2018-10-09] MEDS ORDERED: POTASSIUM 25 MEQ EFFERV TAB PO ONE ×2 (08:00→09:00)
[2018-10-09 08:28] LABS: Blood Morphology Comment NOT SEEN (NOT SEEN); Platelet Estimate ADEQ; Urine White Blood Cell Casts OK
[2018-10-09] MEDS: HOME MED 1 EA UNK (Budesonide/Formoterol Fumarate [Symbicort 80-4.5 Mcg Inhaler] 2 PUFF) IH SCH ×2 (09:00→21:00)
[2018-10-09] MEDS: DULERA 100/5 (MOMETASONE/FORMOTEROL) INHALER IH SCH ×2 (09:00→21:00)
[2018-10-09] MEDS: VITAMIN D 5,000 UNIT CAP PO SCH (10:48)
[2018-10-09] MEDS: ASPIRIN 81 MG CHEWABLE TABLET PO SCH (10:49)
[2018-10-09] MEDS: CARVEDILOL 25 MG TAB PO SCH ×2 (10:49→21:36)
[2018-10-09] MEDS: SPIRONOLACTONE 25 MG TABLET PO SCH (10:49)
[2018-10-09] MEDS: FUROSEMIDE 20 MG TABLET PO SCH (10:50)
--- NOTE | 2018-10-09 15:23 | P.PN ---
Subjective Date of Service: 10/09/18 Chief Complaint: Syncope Pt seen and examined at bedside with RN. Chart Reviewed. Case DW with patient at bedside. Pt has no complains to offer overnight. Doing well overall. blood Culture x 1 + for gram + rods Review of Systems 10-point ROS is otherwise unremarkable Physical Examination - Vital Signs Temperature: 97.5 F Blood Pressure: 163/81 Pulse: 59 Respirations: 22 Pulse Ox (%): 99 - Physical Exam General: Alert, In no apparent distress HEENT: Atraumatic, PERRLA, EOMI Neck: Supple, JVD not distended Respiratory: Clear to auscultation bilaterally, Normal air movement Cardiovascular: Regular rate/rhythm, Normal S1 S2 Gastrointestinal: Normal bowel sounds, No tenderness Musculoskeletal: No tenderness Integumentary: No rashes Neurological: Normal speech, Normal tone, Normal affect Lymphatics: No axilla or inguinal lymphadenopathy - Studies Medications List Reviewed: Yes Assessment And Plan - Current Problems (Diagnosis) (1) Syncope Current Visit: Yes Status: Resolved Plan: Syncope Most likely 2.2 to Orthostatis -cardiology consulted. Appreciate Reccs -Stop Imdur for now -Interrogate the defibrillator -Lab work and other imaging study negative -PT consulted. Pt working with PT -Orthostatic vitals negative Qualifiers: Syncope type: vasovagal syncope Qualified Code(s): R55 - Syncope and collapse (2) Fall Onset Date: 10/07/18 Current Visit: Yes Status: Acute Plan: Syncopal Fall -Fall precautions given -PT consulted Qualifiers: Encounter type: initial encounter Qualified Code(s): W19.XXXA - Unspecified fall, initial encounter (3) CHF (congestive heart failure) Current Visit: Yes Status: Chronic Qualifiers: Heart failure type: combined systolic and diastolic Heart failure chronicity: chronic Qualified Code(s): I50.42 - 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) heart failure (4) History of implantable cardioverter-defibrillator (ICD) placement Current Visit: Yes Status: Chronic (5) Hypertension Onset Date: 10/07/18 Current Visit: Yes Status: Chronic Qualifiers: Hypertension type: essential hypertension Qualified Code(s): I10 - Essential (primary) hypertension (6) Carcinoma of right breast Onset Date: 12/06/16 Current Visit: No Status: Chronic Qualifiers: Breast location: unspecified site of breast Estrogen receptor status: unspecified Patient sex: female Qualified Code(s): C50.911 - Malignant neoplasm of unspecified site of right female breast - Plan Awaiting blood cultures x2 to be negative for discharge. Discharge Plan: Home Plan to discharge in: 48 Hours - Code Status/Comfort Care Code Status Assessed: Yes Critical Care: No
[2018-10-09 15:54] LABS: UR MICROALBUMIN < 0.5 mg/dL (< 1.9)
[2018-10-09 16:00] LABS: Urine Appearance CLOUDY; Urine Bilirubin NEGATIVE (NEG); Urine Blood 1+ (NEG); Urine Color YELLOW; Urine Glucose NEGATIVE (NEG); Urine Protein NEGATIVE (NEG); Urine pH 6.5 (5.0-7.0)
[2018-10-09 16:37] LABS: Urine Bacteria 20-50 /HPF (<20); Urine Culture Reflex Order REFLEXED
[2018-10-09] MEDS ORDERED: BISACODYL 10 MG RECTAL SUPP PR PRN (20:20)
[2018-10-09] MEDS ORDERED: MAGNESIUM HYDROXIDE 8% 30 ML PO ONE (20:22)
--- NOTE | 2018-10-09 20:31 | P.PN ---
Date of Service: 10/09/18 Vital Signs Temp Pulse Resp BP Pulse Ox 97.2 F 66 22 H 175/79 H 98 10/09/18 16:00 10/09/18 16:00 10/09/18 16:00 10/09/18 16:00 10/09/18 16:00 Medications Acetaminophen (Tylenol -Extra Strength) 500 mg PO Q4HP PRN PRN Reason: [id number] Stop: 11/05/18 20:44 Last Admin: 10/09/18 19:06 Dose: 500 mg Aspirin (Aspirin Chewable) 81 mg PO DAILY SHANTI Stop: 11/07/18 09:01 Last Admin: 10/09/18 10:49 Dose: 81 mg Atorvastatin Calcium (Lipitor) 20 mg PO BEDTIME SHANTI Stop: 11/06/18 21:01 Last Admin: 10/08/18 21:44 Dose: 20 mg Bisacodyl (Dulcolax) 10 mg IL BID PRN PRN Reason: CONSTIPATION Stop: 11/08/18 21:01 Carvedilol (Coreg) 25 mg PO BID SHANTI Stop: 11/06/18 21:01 Last Admin: 10/09/18 10:49 Dose: 25 mg Cholecalciferol (Vitamin D 5,000 Iu Cap) 5,000 unit PO DAILY SHANTI Stop: 11/08/18 09:01 Last Admin: 10/09/18 10:48 Dose: 5,000 unit Docusate Sodium (Colace Cap) 100 mg PO BID SHANTI Stop: 11/08/18 21:01 Furosemide (Lasix) 20 mg PO DAILY SHANTI Stop: 11/07/18 09:01 Last Admin: 10/09/18 10:50 Dose: 20 mg Home Med (Linaclotide [Linzess]) 1 cap PO BEDTIME SHANTI Stop: 11/06/18 21:01 Last Admin: 10/08/18 14:39 Dose: 1 cap Home Med (Budesonide/Formoterol Fumarate [Symbicort 80-4.5 Mcg Inhaler]) 2 puff IH BID SHANTI Stop: 11/07/18 21:01 Last Admin: 10/09/18 09:00 Dose: Not Given Levothyroxine Sodium (Synthroid) 0.05 mg PO DAILY@0600 SHANTI Stop: 11/06/18 06:01 Last Admin: 10/09/18 06:32 Dose: 0.05 mg Magnesium Hydroxide (Milk Of Magnesia) 30 ml PO 1X ONE Stop: 10/09/18 20:23 Ondansetron HCl (Zofran) 4 mg IV Q6HP PRN PRN Reason: NAUSEA / VOMITING Stop: 11/05/18 20:44 Pantoprazole Sodium (Protonix Tab) 40 mg PO DAILYAC SHANTI Stop: 11/07/18 06:31 Last Admin: 10/09/18 06:32 Dose: 40 mg Spironolactone (Aldactone) 25 mg PO DAILY SHANTI Stop: 11/07/18 09:01 Last Admin: 10/09/18 10:49 Dose: 25 mg Trazodone HCl (Desyrel) 100 mg PO BEDTIME SHANTI Stop: 11/06/18 21:01 Last Admin: 10/08/18 21:46 Dose: 100 mg Assessment/ Plan: Nephrology. Constipation. No acute events overnight. CPS stable without CP or SOB. Vitals, medications, blood work and imaging reviewed in the chart. NAD. NCAT. MMM. Neck supple. CTA. RRR. Soft Abd. No C/C/E. No rash. Scattered ecchymoses. AAO. EXAM DESCRIPTION: Kathy Single View10/07/2018 1:03 pm CLINICAL HISTORY: Hypertension COMPARISON: 2017 FIINGS: The lungs are hyperaerated. The lungs appear clear of acute infiltrate. The heart is mildly enlarged. Pacemaker leads are in place. Small to moderate hiatal hernia IMPRESSION: No acute abnormalities displayed A/ Hyponatremia/ SIADH. Proteinuria. Syncope. HTN. Systolic CHF, chronic. Hypocalcemia. Moderate protein calorie malnutrition. P/ Continue current POC and Medications. Give MoM. Dulcolax IL PRN. Agree with diuretics. Potassium replacement as needed. No NSAIDs. AM labs. Daily weight.
[2018-10-09] MEDS: LINACLOTIDE PO SCH (21:00)
[2018-10-09] MEDS: ATORVASTATIN 20 MG TAB PO SCH (21:37)
[2018-10-09] MEDS: DOCUSATE NA 100 MG CAP PO SCH (21:38)
[2018-10-09] MEDS: TRAZODONE 50 MG TABLET PO SCH (21:38)
[2018-10-10] MEDS: ACETAMINOPHEN 500 MG TAB PO PRN ×3 (05:50→21:17)
[2018-10-10] MEDS: LEVOTHYROXINE SOD 0.05 MG TABLET PO SCH (05:51)
[2018-10-10] MEDS: PANTOPRAZOLE 40MG TABLET PO SCH (05:51)
[2018-10-10 05:56] LABS: Potassium 4.1 mmol/L (3.5-5.1)
[2018-10-10] MEDS: DOCUSATE NA 100 MG CAP PO SCH ×2 (09:00→20:39)
[2018-10-10] MEDS: HOME MED 1 EA UNK (Budesonide/Formoterol Fumarate [Symbicort 80-4.5 Mcg Inhaler] 2 PUFF) IH SCH ×2 (09:00→20:39)
[2018-10-10] MEDS: DULERA 100/5 (MOMETASONE/FORMOTEROL) INHALER IH SCH ×2 (09:00→20:55)
[2018-10-10] MEDS: VITAMIN D 5,000 UNIT CAP PO SCH (09:43)
[2018-10-10] MEDS: FUROSEMIDE 20 MG TABLET PO SCH (09:43)
[2018-10-10] MEDS: ASPIRIN 81 MG CHEWABLE TABLET PO SCH (09:43)
[2018-10-10] MEDS: CARVEDILOL 25 MG TAB PO SCH ×2 (09:44→20:43)
[2018-10-10] MEDS: SPIRONOLACTONE 25 MG TABLET PO SCH (09:47)
--- NOTE | 2018-10-10 09:51 | P.PN ---
Subjective Date of Service: 10/10/18 Chief Complaint: Syncope Pt seen and examined at bedside with RN. Chart Reviewed. Case DW with patient at bedside. Pt has no complains to offer overnight. Doing well overall. blood Culture x 1 + for gram + rods and Urine + for gram - rods now. Pt states she is unable to go home as she is weak and does not have anyone to care for her. Will Talk to CM on Friday regarding SNF vs rehab placement vs HH Review of Systems 10-point ROS is otherwise unremarkable Physical Examination - Vital Signs Temperature: 97.4 F Blood Pressure: 119/68 Pulse: 70 Respirations: 18 Pulse Ox (%): 98 - Physical Exam General: Alert, In no apparent distress HEENT: Atraumatic, PERRLA, EOMI Neck: Supple, JVD not distended Respiratory: Clear to auscultation bilaterally, Normal air movement Cardiovascular: Regular rate/rhythm, Normal S1 S2 Gastrointestinal: Normal bowel sounds, No tenderness Musculoskeletal: No tenderness Integumentary: No rashes Neurological: Normal speech, Normal tone, Normal affect Lymphatics: No axilla or inguinal lymphadenopathy - Studies Medications List Reviewed: Yes Assessment And Plan - Current Problems (Diagnosis) (1) Syncope Current Visit: Yes Status: Resolved Plan: Syncope Most likely 2.2 to Orthostatis -cardiology consulted. Appreciate Reccs -Stop Imdur for now -Interrogate the defibrillator -Lab work and other imaging study negative -PT consulted. Pt working with PT -Orthostatic vitals negative Qualifiers: Syncope type: vasovagal syncope Qualified Code(s): R55 - Syncope and collapse (2) Fall Onset Date: 10/07/18 Current Visit: Yes Status: Acute Plan: Syncopal Fall -Fall precautions given -PT consulted. Ambulating Well with assistance. -May benefit from SNF. Will consult CM regarding placement Qualifiers: Encounter type: initial encounter Qualified Code(s): W19.XXXA - Unspecified fall, initial encounter (3) CHF (congestive heart failure) Current Visit: Yes Status: Chronic Qualifiers: Heart failure type: combined systolic and diastolic Heart failure chronicity: chronic Qualified Code(s): I50.42 - 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) heart failure (4) History of implantable cardioverter-defibrillator (ICD) placement Current Visit: Yes Status: Chronic (5) Hypertension Onset Date: 10/07/18 Current Visit: Yes Status: Chronic Qualifiers: Hypertension type: essential hypertension Qualified Code(s): I10 - Essential (primary) hypertension (6) Carcinoma of right breast Onset Date: 12/06/16 Current Visit: No Status: Chronic Qualifiers: Breast location: unspecified site of breast Estrogen receptor status: unspecified Patient sex: female Qualified Code(s): C50.911 - Malignant neoplasm of unspecified site of right female breast (7) Bacteremia Current Visit: Yes Status: Acute Plan: Blood culture x 1 + for gram - rods -Will await final result. (8) UTI (urinary tract infection) Current Visit: Yes Status: Acute Plan: UA with gram - rods. -Will start Rocephin and await culture Qualifiers: Urinary tract infection type: acute cystitis Hematuria presence: without hematuria Qualified Code(s): N30.00 - Acute cystitis without hematuria - Plan Awaiting blood cultures x2 to be negative and CM consult now with Patient wanting rehab vs SNF Discharge Plan: Home Plan to discharge in: 48 Hours - Code Status/Comfort Care Code Status Assessed: Yes Critical Care: No
[2018-10-10] MEDS: CEFTRIAXONE/SWI 1gm 1 GM/10 ML SYR IV SCH (11:03)
[2018-10-10] MEDS: NA CHLORIDE 0.9% 1,000 ML IV SCH (14:45)
--- NOTE | 2018-10-10 15:51 | PN ---
Date of Progress Note: 10/10/2018 Subjective: The patient is seen at bedside. No overnight events reported. The patient has been hav ing loose stools, also complaining some indigestion. Otherwise, no fevers, chills, chest pain. No s hortness of breath or vomiting. Objective: Vital Signs: Reviewed. General: No acute distress. Heart: Regular rate, rhythm. No murmurs, rubs, gallops. Lungs: Clear to auscultation bilaterally. Abdomen: With some mild generalized tenderness, but no peritoneal signs. Positive bowel sounds x4. Extremities: No significant edema. Laboratory Data: Reviewed. Serum chemistry, sodium 131, potassium 4.1, chloride 95, CO2 of 26, BUN 12, creatinine 0.8, and glucose is 106. Calcium 8.1. CBC reviewed, stable. Urine from yesterday vargas d shown contaminated sample, but did have bacteria and wbc's. Microbiology Data: Pending. Current Medications: Reviewed. 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 Plan: I did order a cortisol level for the morning to ensure the patient does not have any evidence of adrenal insufficiency leading to hyponatremia. The patient did have a normal thyroid level on adm ission. She did have a CT scan, did not show any obvious masses. I at this point would continue flu id restriction. I would also increase the patient's protein intake to improve osmolar-mediated water excretion by adding protein shakes to the patient's diet. Continue to monitor electrolytes. /LORENZA Voice ID: [id number] Report ID: [id number]
[2018-10-10] MEDS: TRAZODONE 50 MG TABLET PO SCH (20:36)
[2018-10-10] MEDS: ATORVASTATIN 20 MG TAB PO SCH (20:36)
[2018-10-10] MEDS: LINACLOTIDE PO SCH (20:55)
[2018-10-10] MEDS ORDERED: LOPERAMIDE HCL 2 MG CAPSULE PO STA (22:50)
[2018-10-11] MEDS ORDERED: TRAMADOL HCL 50 MG TAB PO PRN (04:05)
[2018-10-11] MEDS: NA CHLORIDE 0.9% 1,000 ML IV SCH (04:20)
[2018-10-11] MEDS: LEVOTHYROXINE SOD 0.05 MG TABLET PO SCH (05:04)
[2018-10-11] MEDS: PANTOPRAZOLE 40MG TABLET PO SCH (05:04)
[2018-10-11] MEDS ORDERED: CEFTRIAXONE 1 GM/NS 50 ML 1 GM/50 ML BAG IV SCH (09:00)
[2018-10-11] MEDS: DOCUSATE NA 100 MG CAP PO SCH ×2 (09:00→20:12)
[2018-10-11] MEDS: DULERA 100/5 (MOMETASONE/FORMOTEROL) INHALER IH SCH ×2 (09:00→21:00)
[2018-10-11] MEDS: HOME MED 1 EA UNK (Budesonide/Formoterol Fumarate [Symbicort 80-4.5 Mcg Inhaler] 2 PUFF) IH SCH ×2 (09:00→21:00)
[2018-10-11] MEDS: FUROSEMIDE 20 MG TABLET PO SCH (09:41)
[2018-10-11] MEDS: ASPIRIN 81 MG CHEWABLE TABLET PO SCH (09:41)
[2018-10-11] MEDS: SPIRONOLACTONE 25 MG TABLET PO SCH (09:42)
[2018-10-11] MEDS: CEFTRIAXONE/SWI 1gm 1 GM/10 ML SYR IV SCH (09:42)
[2018-10-11] MEDS: VITAMIN D 5,000 UNIT CAP PO SCH (09:42)
[2018-10-11] MEDS: CARVEDILOL 25 MG TAB PO SCH ×2 (09:43→22:05)
--- NOTE | 2018-10-11 14:33 | P.PN ---
Subjective Date of Service: 10/11/18 Chief Complaint: Syncope Pt seen and examined at bedside with RN. Chart Reviewed. Case DW with patient at bedside. Pt has no complains to offer overnight. Doing well overall. Patient does feel better today and now states she is ready to go home. Urine Culture + for ECOLI resistant to PO medication. Will discuss with Pharmacy regarding IV vs PO option Review of Systems 10-point ROS is otherwise unremarkable Physical Examination - Vital Signs Temperature: 98.6 F Blood Pressure: 139/87 Pulse: 75 Respirations: 18 Pulse Ox (%): 95 - Physical Exam General: Alert, In no apparent distress HEENT: Atraumatic, PERRLA, EOMI Neck: Supple, JVD not distended Respiratory: Clear to auscultation bilaterally, Normal air movement Cardiovascular: Regular rate/rhythm, Normal S1 S2 Gastrointestinal: Normal bowel sounds, No tenderness Musculoskeletal: No tenderness Integumentary: No rashes Neurological: Normal speech, Normal tone, Normal affect Lymphatics: No axilla or inguinal lymphadenopathy - Studies Medications List Reviewed: Yes Assessment And Plan - Current Problems (Diagnosis) (1) UTI (urinary tract infection) Current Visit: Yes Status: Acute Plan: UA with UTI and Patient with Increase Frequency and Burning since 2 days now -Urine Culture + for ECOLI resistant to PO medication -Will discuss with Pharmacy regarding IV vs PO option Qualifiers: Urinary tract infection type: acute cystitis Hematuria presence: without hematuria Qualified Code(s): N30.00 - Acute cystitis without hematuria (2) Bacteremia Current Visit: Yes Status: Acute Plan: Blood culture x 1 + for gram - rods -Final result with negative Culture (3) Syncope Current Visit: Yes Status: Resolved Plan: Syncope Most likely 2.2 to Orthostatis -cardiology consulted. Appreciate Reccs -Stop Imdur for now -Interrogate the defibrillator -Lab work and other imaging study negative -PT consulted. Pt working with PT -Orthostatic vitals negative Qualifiers: Syncope type: vasovagal syncope Qualified Code(s): R55 - Syncope and collapse (4) Fall Onset Date: 10/07/18 Current Visit: Yes Status: Acute Plan: Syncopal Fall -Fall precautions given -PT consulted. Ambulating Well with assistance. -May benefit from SNF. Will consult CM regarding placement Qualifiers: Encounter type: initial encounter Qualified Code(s): W19.XXXA - Unspecified fall, initial encounter (5) CHF (congestive heart failure) Current Visit: Yes Status: Chronic Qualifiers: Heart failure type: combined systolic and diastolic Heart failure chronicity: chronic Qualified Code(s): I50.42 - 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) heart failure (6) History of implantable cardioverter-defibrillator (ICD) placement Current Visit: Yes Status: Chronic (7) Hypertension Onset Date: 10/07/18 Current Visit: Yes Status: Chronic Qualifiers: Hypertension type: essential hypertension Qualified Code(s): I10 - Essential (primary) hypertension (8) Carcinoma of right breast Onset Date: 12/06/16 Current Visit: No Status: Chronic Qualifiers: Breast location: unspecified site of breast Estrogen receptor status: unspecified Patient sex: female Qualified Code(s): C50.911 - Malignant neoplasm of unspecified site of right female breast Discharge Plan: Home Plan to discharge in: 48 Hours - Code Status/Comfort Care Code Status Assessed: Yes Critical Care: No
[2018-10-11] MEDS ORDERED: LIDOCAINE 1% MPF 5 ML VIAL IM PRN (19:00)
[2018-10-11] MEDS: LINACLOTIDE PO SCH (20:13)
[2018-10-11] MEDS: ATORVASTATIN 20 MG TAB PO SCH (22:06)
[2018-10-11] MEDS: TRAZODONE 50 MG TABLET PO SCH (22:06)
[2018-10-12] MEDS: LEVOTHYROXINE SOD 0.05 MG TABLET PO SCH (05:04)
[2018-10-12] MEDS: PANTOPRAZOLE 40MG TABLET PO SCH (05:04)
[2018-10-12 06:01] LABS: Magnesium 2.2 mg/dL (1.8-2.4); Phosphorus 3.5 mg/dL (2.5-4.9); Potassium 3.7 mmol/L (3.5-5.1)
[2018-10-12] MEDS ORDERED: POTASSIUM CL SA 10 MEQ TAB PO ONE (06:45)
[2018-10-12] MEDS: HOME MED 1 EA UNK (Budesonide/Formoterol Fumarate [Symbicort 80-4.5 Mcg Inhaler] 2 PUFF) IH SCH (09:00)
[2018-10-12] MEDS ORDERED: CEFTRIAXONE 1000 MG/VIAL IM SCH (09:00)
[2018-10-12] MEDS: DULERA 100/5 (MOMETASONE/FORMOTEROL) INHALER IH SCH (09:00)
[2018-10-12] MEDS: DOCUSATE NA 100 MG CAP PO SCH ×2 (09:00→10:24)
[2018-10-12] MEDS: CARVEDILOL 25 MG TAB PO SCH (10:23)
[2018-10-12] MEDS: VITAMIN D 5,000 UNIT CAP PO SCH (10:23)
[2018-10-12] MEDS: FUROSEMIDE 20 MG TABLET PO SCH (10:23)
[2018-10-12] MEDS: SPIRONOLACTONE 25 MG TABLET PO SCH (10:24)
[2018-10-12] MEDS: ASPIRIN 81 MG CHEWABLE TABLET PO SCH (10:24)
--- NOTE | 2018-10-12 10:43 | PN ---
Date of Progress Note: 10/08/2018 Ms. Faith was admitted to Dr. Jacobsen's service on 10/06/2018. She was seen by Dr. Crespo on 8 because of congestive heart failure, orthostasis, and history of AICD. The AICD checked out well w ith normal function. Echocardiography showed an ejection fraction of 46%. The patient is doing well today. It is most likely that the orthostasis is secondary to polypharmacy. I will suggest stoppin g the isosorbide mononitrate. We will see the patient in the office in about 2 weeks. ANDERSON/LORENZA Voice ID: [id number] Report ID: [id number]
[2018-10-12] MEDS: ACETAMINOPHEN 500 MG TAB PO PRN (12:43)
--- NOTE | 2018-10-12 16:37 | P.DS ---
Admission Date: 10/06/18 Discharge Date: 10/12/18 Disposition: ROUTINE DISCHARGE Discharge Condition: GOOD Reason for Admission: Syncope - Problems (1) UTI (urinary tract infection) Current Visit: Yes Status: Acute Qualifiers: Urinary tract infection type: acute cystitis Hematuria presence: without hematuria Qualified Code(s): N30.00 - Acute cystitis without hematuria (2) Bacteremia Current Visit: Yes Status: Acute (3) Syncope Current Visit: Yes Status: Resolved Qualifiers: Syncope type: vasovagal syncope Qualified Code(s): R55 - Syncope and collapse (4) Fall Onset Date: 10/07/18 Current Visit: Yes Status: Acute Qualifiers: Encounter type: initial encounter Qualified Code(s): W19.XXXA - Unspecified fall, initial encounter (5) CHF (congestive heart failure) Current Visit: Yes Status: Chronic Qualifiers: Heart failure type: combined systolic and diastolic Heart failure chronicity: chronic Qualified Code(s): I50.42 - 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) heart failure (6) History of implantable cardioverter-defibrillator (ICD) placement Current Visit: Yes Status: Chronic (7) Hypertension Onset Date: 10/07/18 Current Visit: Yes Status: Chronic Qualifiers: Hypertension type: essential hypertension Qualified Code(s): I10 - Essential (primary) hypertension (8) Carcinoma of right breast Onset Date: 12/06/16 Current Visit: No Status: Chronic Qualifiers: Breast location: unspecified site of breast Estrogen receptor status: unspecified Patient sex: female Qualified Code(s): C50.911 - Malignant neoplasm of unspecified site of right female breast Brief History of Present Illness: Ms Faith is an 78-year-old woman with history of multiple medical problems including ICD placement, who came to ED after sustaining a fall at home. She says that prior to the fall, she start feeling dizzy. She denied any chest pain or shortness of breath. She also denied any palpitation or heart racing feeling. No history of fever or chills either. The patient is follow-up by who does the interrogation of her ICD routinely. Lab work remarkable for leukocytosis 18.6 K, sodium is 127. CT head/neck/chest/abdomen and pelvis showed not acute abnormality. Hospital Course: Overall during the hospital stay patient remained stable Patient was a admitted to the hospital f after having syncopal episode at the house. Patient had a fall at the house. Patient has been having frequent falls at the house as well. Syncopal workup was done here in the hospital with head CT and echocardiogram which were all within normal limits. It was determined the patient was most likely having vasovagal versus orthostatic hypotension which was causing her to have syncopal episodes. This was most likely secondary to her taking all her medications at 1 time for her blood pressure along with her pain medication. Patient was educated extensively on the need to space out medication that had down on some of the pain medications. Patient had physical therapy consulted here in the hospital and did well overall wound was walking 250 feet with rolling walker. Patient was found to have a UA with urinary tract infection and a urine culture that was positive for E. coli that was resistant to mostly all oral medication. At that time a decision was made to spell start patient on Rocephin IV here in the hospital and discharged her on IM Rocephin at home. Patient is not a candidate for PICC line due to bilateral mastectomy. Patient also has a pacemaker in in refuse to get a central line. Patient did not want ago 8% with the to get her IV antibiotics thus she was discharged home with home health to continue taking Rocephin to be taken for total 14 days. Once the antibiotics were arranged patient was discharged home under stable condition and was asked to continue taking all her medication as prescribed. Patient was also found to have hyponatremia while here in the hospital which was very chronic problem for patient due to her medication and poor intake. Patient was educated extensively on taking oral intake. patient demonstrated Understanding. Vital Signs/Physical Exam: Temp Pulse Resp BP Pulse Ox 97.9 F 72 22 H 162/103 H 97 10/12/18 12:00 10/12/18 12:00 10/12/18 12:00 10/12/18 12:00 10/12/18 12:00 General: Alert, In no apparent distress HEENT: Atraumatic, PERRLA, EOMI Neck: Supple, JVD not distended Respiratory: Clear to auscultation bilaterally, Normal air movement Cardiovascular: Regular rate/rhythm, Normal S1 S2 Gastrointestinal: Normal bowel sounds, No tenderness Musculoskeletal: No tenderness Integumentary: No rashes Neurological: Normal speech, Normal tone, Normal affect Lymphatics: No axilla or inguinal lymphadenopathy Laboratory Data at Discharge: WBC 7.5 K/uL (4.3-10.9) 10/09/18 06:26 Hgb 12.8 g/dL (12.0-15.0) 10/09/18 06:26 Hct 37.9 % (36.0-45.0) 10/09/18 06:26 Plt Count 232 K/uL (152-406) 10/09/18 06:26 Sodium 135 mmol/L (136-145) L 10/12/18 05:29 Potassium 3.7 mmol/L (3.5-5.1) 10/12/18 05:29 BUN 16 mg/dL (7-18) 10/12/18 05:29 Creatinine 0.90 mg/dL (0.55-1.3) 10/12/18 05:29 Glucose 80 mg/dL (74-106) 10/12/18 05:29 Uric Acid 2.4 mg/dL (2.6-6.0) L 10/09/18 06:26 Phosphorus 3.5 mg/dL (2.5-4.9) 10/12/18 05:29 Magnesium 2.2 mg/dL (1.8-2.4) 10/12/18 05:29 Total Bilirubin 0.8 mg/dL (0.2-1.0) 10/09/18 06:26 AST 37 U/L (15-37) 10/09/18 06:26 ALT 50 U/L (12-78) 10/09/18 06:26 Alkaline Phosphatase 37 U/L (45-117) L 10/09/18 06:26 Troponin I 0.03 ng/mL (0.0-0.045) 10/08/18 23:10 Home Medications: Atorvastatin Calcium [Lipitor*] 20 mg PO BEDTIME 12/04/16 Carvedilol [Coreg*] 25 mg PO BID 12/04/16 Eszopiclone [Lunesta] 2 mg PO BEDTIME 12/04/16 Furosemide [Lasix*] 20 mg PO DAILY 12/04/16 Levothyroxine Sodium 50 mcg PO DAILY 12/04/16 Spironolactone [Aldactone*] 25 mg PO DAILY 12/04/16 Trazodone [Desyrel*] 100 mg PO BEDTIME 12/04/16 Aspirin 1 tab PO DAILY 10/06/18 Esomeprazole Mag Trihydrate [Nexium] 1 cap PO DAILY 10/06/18 Linaclotide [Linzess] 1 cap PO BEDTIME 10/06/18 Budesonide/Formoterol Fumarate [Symbicort 80-4.5 Mcg Inhaler] 2 puff IH BID Ceftriaxone Sodium [Ceftriaxone] 1 gm IJ DAILY #14 vial 10/12/18 New Medications: Ceftriaxone Sodium [Ceftriaxone] 1 gm IJ DAILY #14 vial Patient Discharge Instructions: Please f.u with PCP and cardiology in 1 to 2 week post discharge. Stop taking. Tramadol and Imdur as they are causing you to have syncope Diet: Regular Activity: Ad lissett Followup: Rene Aguilera MD [ACTIVE - CAN ADMIT] - 1 Week (Follow up in office in 1 week. Call to schedule an appointment.) Julian Sheppard MD [Primary Care Provider] - 1 Week (Follow up in office in 1 week. Call to schedule an appointment.)
== END 2018-10-12 18:29 | disposition home health service (06) | DRG 690 ==
LOC: ER 14:55 → ERHOLD 17:49 → 4TH 19:36 → OBSVTOIN 20:43
PROVIDERS: ADMIT Family Medicine; ATTEND Family Medicine
DX: N30.00 Acute cystitis without hematuria (principal); I50.42 Chronic combined systolic (congestive) and diastolic (congestive) heart failure; K57.92 Diverticulitis of intestine, part unspecified, without perforation or abscess without bleeding; E22.2 Syndrome of inappropriate secretion of antidiuretic hormone; E44.0 Moderate protein-calorie malnutrition; R78.81 Bacteremia; B96.20 Unspecified Escherichia coli [E. coli] as the cause of diseases classified elsewhere; Z16.24 Resistance to multiple antibiotics; R55 Syncope and collapse; Z91.81 History of falling; I11.0 Hypertensive heart disease with heart failure; Z90.13 Acquired absence of bilateral breasts and nipples; Z95.810 Presence of automatic (implantable) cardiac defibrillator; E05.90 Thyrotoxicosis, unspecified without thyrotoxic crisis or storm; J44.9 Chronic obstructive pulmonary disease, unspecified; K21.9 Gastro-esophageal reflux disease without esophagitis; Z87.891 Personal history of nicotine dependence; Z85.528 Personal history of other malignant neoplasm of kidney; Z90.5 Acquired absence of kidney; J40 Bronchitis, not specified as acute or chronic; C50.911 Malignant neoplasm of unspecified site of right female breast; R80.9 Proteinuria, unspecified; E83.51 Hypocalcemia; K59.00 Constipation, unspecified; I95.2 Hypotension due to drugs
CPT/HCPCS: 36415; 70450; 71045; 71250; 72125; 80048; 80053; 81001; 81003; 81015; 82043; 82533; 82550; 82570; 83735; 83930; 83935; 84100; 84300; 84443; 84484; 84550; 85025; 86850; 86900; 86901; 87040; 87077; 87086; 87088; 87186; 87205; 87493; 90714; 93306; 97163; 99285; G0008; G0378; J0696; J2405; J3010; J3475; J7030; J7606; Q2035

== ENCOUNTER 2020-06-26 14:47 | Inpatient (IN) | payer OTHER ==
[2020-06-26 16:25] LABS: Absolute Lymphocytes (CBC) 1.3 K/uL (0.7-4.9); Basophils % 0.5 % (0-1.3); Hematocrit 25.5 % (36.0-45.0); Lymphocytes % 10.5 % (15.3-44.8); MPV 6.7 fL (7.6-11.3); RBC Red Blood Cell Count 3.54 M/uL (3.86-4.86)
[2020-06-26 16:29] LABS: Protime INR 1.09
[2020-06-26 16:53] LABS: ALT/SGPT 63 U/L (12-78); AST/SGOT 40 U/L (15-37); Albumin 2.9 g/dL (3.4-5.0); Alkaline Phosphatase 58 U/L (45-117); BUN Blood Urea Nitrogen 17 mg/dL (7-18); Bicarbonate 26 mmol/L (21-32); Bilirubin Direct 0.2 mg/dL (0-0.2); Bilirubin Total 0.5 mg/dL (0.2-1.0); Glucose Level 97 mg/dL (74-106); Lipase 83 U/L (73-393); Magnesium 2.4 mg/dL (1.8-2.4); NT PRO-BNP 1659 pg/mL (<450); Potassium 4.9 mmol/L (3.5-5.1); Protein, Total 6.7 g/dL (6.4-8.2); Sodium Level 123 mmol/L (136-145); Troponin (Emerg Dept Use Only) < 0.02 ng/mL (0.0-0.045)
--- NOTE | 2020-06-26 17:30 | RAD REPORT ---
EXAM DESCRIPTION: Kathy Single View06/26/2020 4:06 pm CLINICAL HISTORY: sob COMPARISON: 2018 FINDINGS: The lungs appear clear of acute infiltrate. The heart is mildly enlarged. Pacemaker leads are in place. IMPRESSION: No acute abnormalities displayed
[2020-06-26] MEDS ORDERED: NA CHLORIDE 0.9% 1,000 ML ONE (17:50)
[2020-06-26] MEDS ORDERED: ONDANSETRON 4 MG/2 ML VIAL ONE (18:40)
[2020-06-26] MEDS ORDERED: METHYLPREDNISOLONE 125 MG INJ ONE (18:40)
[2020-06-26] MEDS ORDERED: DIPHENHYDRAMINE 50 MG/ML VIAL ONE (18:40)
--- NOTE | 2020-06-26 19:16 | RAD REPORT ---
EXAM DESCRIPTION: CT - Abdomen Pelvis W Contrast - 06/26/2020 6:49 pm CLINICAL HISTORY: Abdominal pain COMPARISON: none. TECHNIQUE: Computed axial tomography of the abdomen pelvis was obtained. 100 cc Isovue-300 was admin istered intravenously. Oral contrast was not requested which limits evaluation of bowel. All CT scans are performed using dose optimization technique as appropriate and may include automated exposure control or mA/KV adjustment according to patient size. FINDINGS: Small right pleural effusion Liver contains a large number of lesions varying in size from a few millimeters to 1 centimeter. Many of the lesions are intermediate density. A 6 centimeter right subphrenic mass is present. Small to moderate hiatal hernia The spleen, pancreas, and right adrenal gland unremarkable. Small right renal cysts with mild cortica l thinning. Left subphrenic ill-defined mass extends inferiorly. Omental, mesenteric and retroperitoneal soft tissue masses are present measuring up to several centim eters. 1 centimeter lesion abuts the left anterior wall musculature within the posterior subcutaneous fat of left abdomen Diverticula stem from the colon without evidence diverticulitis. A small amount of ascites is present. The gallbladder has been removed Lipoma within the subcutaneous tissues left lateral abdomen Hysterectomy. 34 millimeter mass within the cul-de-sac. Lucency L1 vertebral body unchanged. Mild ant erior subluxation L4 on L5. 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 Perhaps this is from breast neoplasm
--- NOTE | 2020-06-26 20:02 | EDPHYS ---
Physician Documentation [facility] Name: Mary Jane Faith Age: 79 yrs Sex: Female : 1940 Arrival Date: 06/26/2020 Time: 14:56 Bed 17 Private MD: ED Physician Maurice Urena HPI: 06/26 16:49 This 79 yrs old Female presents to ER via EMS with complaints of General jr8 Weakness. 16:49 Patient complaining of general weakness, shortness of breath, and n/v for past few jr8 days. Now starting to have trouble walking from weakness . 16:49 Onset: The symptoms/episode began/occurred gradually. Severity of symptoms: At their jr8 worst the symptoms were moderate in the emergency department the symptoms are unchanged. The patient has not experienced similar symptoms in the past. The patient has not recently seen a physician. Historical: - Allergies: 15:25 Codeine; iw 15:25 Cortisone; iw 15:25 Latex, Natural Rubber; iw 15:25 Morphine; iw 15:25 Sulfa (Sulfonamide Antibiotics); iw - Home Meds: 15:25 levothyroxine 75 mcg tab 1 tab once daily [Active]; Nexium 20 mg Oral cpDR 1 cap once iw daily [Active]; Symbicort 80-4.5 mcg/actuation inhalation HFAA 2 puffs 2 times per day [Active]; atorvastatin 20 mg oral tab 1 tab once daily [Active]; Ranexa 500 mg oral Tb12 1 tab 2 times per day [Active]; Linzess 290 mcg oral cap 1 cap once daily [Active]; carvedilol 25 mg oral tab 1 tab 2 times per day [Active]; spironolactone 25 mg Oral tab 1 tab once daily [Active]; trazodone 100 mg Oral tab nightly [Active]; furosemide 20 mg Oral tab 1 tab once daily [Active]; aspirin 81 mg Oral chew 1 tab once daily [Active]; mirtazapine 15 mg Oral TbDL 1 tab once daily [Active]; tramadol 50 mg Oral tab every 4-6 hours [Active]; 06/27 00:04 amiodarone 200 mg Oral tab 1 tab once daily [Active]; mt2 - PMHx: 06/26 15:25 CHF; Hypertension; hyperthyroidism; kidney disease; iw - PSHx: 15:25 double mastectomy; iw 15:27 pacemaker; iw - Immunization history:: Adult Immunizations up to date. - Social history:: Smoking status: Patient/guardian denies using tobacco, the patient reports quitting approximately 10 years ago. ROS: 16:49 Eyes: Negative for injury, pain, redness, and discharge, ENT: Negative for injury, jr8 pain, and discharge, Neck: Negative for injury, pain, and swelling, Cardiovascular: Negative for chest pain, palpitations, and edema, Back: Negative for injury and pain, MS/Extremity: Negative for injury and deformity, Skin: Negative for injury, rash, and discoloration, Neuro: Negative for headache, weakness, numbness, tingling, and seizure. 16:49 Constitutional: Positive for fatigue. 16:49 Respiratory: Positive for cough, shortness of breath. 16:49 Abdomen/GI: Positive for nausea and vomiting, Negative for abdominal pain, diarrhea, constipation, abdominal cramps, abdominal distension. Exam: 16:49 Eyes: Pupils equal round and reactive to light, extra-ocular motions intact. Lids and jr8 lashes normal. Conjunctiva and sclera are non-icteric and not injected. Cornea within normal limits. Periorbital areas with no swelling, redness, or edema. ENT: Nares patent. No nasal discharge, no septal abnormalities noted. Tympanic membranes are normal and external auditory canals are clear. Oropharynx with no redness, swelling, or masses, exudates, or evidence of obstruction, uvula midline. Mucous membranes moist. Neck: Trachea midline, no thyromegaly or masses palpated, and no cervical lymphadenopathy. Supple, full range of motion without nuchal rigidity, or vertebral point tenderness. No Meningismus. Cardiovascular: Regular rate and rhythm with a normal S1 and S2. No gallops, murmurs, or rubs. Normal PMI, no JVD. No pulse deficits. Respiratory: Lungs have equal breath sounds bilaterally, clear to auscultation and percussion. No rales, rhonchi or wheezes noted. No increased work of breathing, no retractions or nasal flaring. Abdomen/GI: Soft, non-tender, with normal bowel sounds. No distension or tympany. No guarding or rebound. No evidence of tenderness throughout. Back: No spinal tenderness. No costovertebral tenderness. Full range of motion. Skin: Warm, dry with normal turgor. Normal color with no rashes, no lesions, and no evidence of cellulitis. MS/ Extremity: Pulses equal, no cyanosis. Neurovascular intact. Full, normal range of motion. Neuro: Awake and alert, GCS 15, oriented to person, place, time, and situation. Cranial nerves II-XII grossly intact. Motor strength 5/5 in all extremities. Sensory grossly intact. Cerebellar exam normal. 16:53 Abdomen/GI: Rectal exam: rectal tone normal, Stool: brown, guaiac negative, jr8 hemorrhoid(s), are not appreciated, mass, is not appreciated, swelling, is not appreciated, tenderness, is not appreciated, the exam is chaperoned by the nurse. Vital Signs: 15:15 BP 152 / 76; Pulse 66; Resp 17; Pulse Ox 100% on 3 lpm NC; jr10 15:25 BP 124 / 75; Pulse 66; Resp 20 S; Pulse Ox 100% on 2 lpm NC; Weight 54.43 kg; Height 5 iw ft. 2 in. (157.48 cm); Pain 8/10; 15:45 BP 125 / 75; Pulse 66; Resp 17; Pulse Ox 100% on 3 lpm NC; jr10 16:30 BP 132 / 70; Pulse 65; Resp 21; Pulse Ox 100% on 3 lpm NC; jr10 19:00 BP 133 / 68; Pulse 67; Resp 21; Pulse Ox 100% on 2 lpm NC; Pain 0/10; mt2 20:00 BP 149 / 67; Pulse 77; Resp 19; Pulse Ox 97% 2 lpm ; Pain 0/10; mt2 20:14 Temp 97.8(O); ar5 21:00 BP 145 / 67; Pulse 65; Resp 20; Pulse Ox 99% on 2 lpm NC; Pain 0/10; mt2 15:25 Body Mass Index 21.95 (54.43 kg, 157.48 cm) iw MDM: 15:03 Patient medically screened. jr8 16:53 Data reviewed: vital signs, nurses notes, lab test result(s), EKG, radiologic studies, jr8 plain films. 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 Interpretation: normal. Counseling: I had a detailed discussion with the patient and/or guardian regarding: the historical points, exam findings, and any diagnostic results supporting the discharge/admit diagnosis, lab results, radiology results, the need for further work-up and treatment in the hospital. 19:57 ED course: Patient PO challenged and could not tolerate fluids. Still short of breath. jr8 Concern for PE now with metastatic findings. Will admit for further work up . 06/26 15:27 Order name: Basic Metabolic Panel; Complete Time: 16:54 8 06/26 15:27 Order name: CBC with Diff; Complete Time: 16:44 8 06/26 15:27 Order name: LFT's; Complete Time: 16:54 8 06/26 15:27 Order name: Magnesium; Complete Time: 16:54 jr8 06/26 15:27 Order name: NT PRO-BNP; Complete Time: 16:54 8 06/26 15:27 Order name: PT-INR; Complete Time: 16:44 8 06/26 15:27 Order name: Troponin (emerg Dept Use Only); Complete Time: 16:54 8 06/26 15:27 Order name: Lipase; Complete Time: 16:54 jr8 06/26 15:27 Order name: COVID-19 [facility] 06/26 16:55 Order name: Occult Blood--Ancillary; Complete Time: 20:14 bd 06/26 18:22 Order name: Urine Microscopic Only; Complete Time: 20:54 jr8 06/26 19:35 Order name: DD; Complete Time: 20:14 jr8 06/26 20:52 Order name: Urine Culture [facility] 06/26 21:16 Order name: Urine Dipstick--Ancillary (enter results); Complete Time: 21:55 ar5 06/26 15:27 Order name: XRAY Chest (1 view); Complete Time: 17:34 jr8 06/26 15:27 Order name: EKG; Complete Time: 15:27 jr8 06/26 15:27 Order name: Cardiac monitoring; Complete Time: 15:35 jr8 06/26 15:27 Order name: EKG - Nurse/Tech; Complete Time: 15:35 jr8 06/26 15:27 Order name: IV Saline Lock; Complete Time: 16:28 06/26 15:27 Order name: Labs collected and sent; Complete Time: 16:28 06/26 15:27 Order name: O2 Per Protocol; Complete Time: 15:35 [facility] 06/26 15:27 Order name: O2 Sat Monitoring; Complete Time: 15:35 [facility] 06/26 17:35 Order name: CT Abd/Pelvis - IV Contrast Only; Complete Time: 19:26 [facility] 06/26 21:57 Order name: CONS Physician Consult EDMS Administered Medications: 17:45 Drug: NS 0.9% 500 ml Route: IV; Rate: bolus; Site: left wrist; jr10 19:00 Follow up: IV Status: Completed infusion; IV Intake: 1000ml mt2 18:35 Drug: Zofran (Ondansetron) 4 mg Route: IVP; Site: right forearm; 10 19:00 Follow up: Response: No adverse reaction; Nausea is decreased mt2 18:37 Drug: SOLU-Medrol 125 mg Route: IVP; Site: right forearm; jr10 19:00 Follow up: Response: No adverse reaction mt2 18:41 Drug: Benadryl 25 mg Route: IVP; Site: right forearm; jr10 19:00 Follow up: Response: No adverse reaction mt2 21:25 Drug: Rocephin 1 grams Route: IV; Rate: calculated rate; Site: left forearm; mt2 22:41 Follow up: Response: No adverse reaction; IV Status: Completed infusion; IV Intake: [id number] 22:41 Not Given (PER PROVIDER): NS 0.9% 1000 ml IV at 75 ml/hr continuous mt2 Disposition: 06/27 08:42 Co-signature as Attending Physician, Maurice Urena MD I agree with the assessment and [facility] plan of care. Disposition: 06/26/20 20:01 Hospitalization ordered by Paul Lopez for Inpatient Admission. Preliminary diagnosis are Hyponatremia , Dehydration, Shortness of breath, Intractable Vomiting , Intra-abdominal and pelvic swelling, mass and lump, Urinary tract infection, site not specified. - Bed requested for Telemetry/MedSurg (Inpatient). - Status is Inpatient Admission. mt2 - Condition is Stable. - Problem is new. - Symptoms are unchanged. Signatures: Dispatcher [employer] EDOK Sayda Orta RN RN mw Woody, Diana, RN RN dw Anderson, Corey, MD MD cha Williams, Irene, RN RN iw Roszak, Josh, PA PA jr8 Pamela Valdez RN RN mt2 Graciela Bailey RN RN jr10 Corrections: (The following items were deleted from the chart) 06/26 19:57 16:53 Counseling: I had a detailed discussion with the patient and/or guardian jrPawan regarding: the historical points, exam findings, and any diagnostic results supporting the discharge/admit diagnosis, lab results, radiology results, jr8 20:12 20:01 Hospitalization Ordered by Paul Lopez for Inpatient Admission. Preliminary dw diagnosis is Hyponatremia . Bed requested for Telemetry/MedSurg (Inpatient). Status is Inpatient Admission. Condition is Stable. Problem is new. Symptoms are unchanged. [facility] 20:18 20:12 06/26/2020 20:01 Hospitalization Ordered by Paul Lopez for Inpatient jr8 Admission. Preliminary diagnosis is Hyponatremia . Bed requested for [facility] ER HOLD. Status is Inpatient Admission. Condition is Stable. Problem is new. Symptoms are unchanged. 20:55 20:18 06/26/2020 20:01 Hospitalization Ordered by Paul Lopez for Inpatient 8 Admission. Preliminary diagnosis is Hyponatremia ; Dehydration; Shortness of breath; Intractable Vomiting ; Intra-abdominal and pelvic swelling, mass and lump. Bed requested for [facility] ER HOLD. Status is Inpatient Admission. Condition is Stable. Problem is new. Symptoms are unchanged. [facility] 06/27 00:13 06/26 15:25 Home Meds: amiodarone 200 mg Oral tab 1 tab once daily; [facility] 06/27 02:44 06/26 20:55 06/26/2020 20:01 Hospitalization Ordered by Paul Lopez for Inpatient Admission. Preliminary diagnosis is Hyponatremia ; Dehydration; Shortness of breath; Intractable Vomiting ; Intra-abdominal and pelvic swelling, mass and lump; Urinary tract infection, site not specified. Bed requested for [facility] ER HOLD. Status is Inpatient Admission. Condition is Stable. Problem is new. Symptoms are unchanged. jr8 06/27 03:38 02:44 06/26/2020 20:01 Hospitalization Ordered by Paul Lopez for Inpatient mt2 Admission. Preliminary diagnosis is Hyponatremia ; Dehydration; Shortness of breath; Intractable Vomiting ; Intra-abdominal and pelvic swelling, mass and lump; Urinary tract infection, site not specified. Bed requested for Telemetry/MedSurg (Inpatient). Status is Inpatient Admission. Condition is Stable. Problem is new. Symptoms are unchanged. mw
--- NOTE | 2020-06-26 20:02 | ER ---
[facility] Name: Mary Jane Faith Age: 79 yrs Sex: Female : 1940 Arrival Date: 06/26/2020 Time: 14:56 Bed 17 Private MD: Diagnosis: Hyponatremia ;Dehydration;Shortness of breath;Intractable Vomiting ;Intra-abdominal and pelvic swelling, mass and lump;Urinary tract infection, site not specified Presentation: 06/26 14:59 Chief complaint: EMS states: pt has been weak, not eating, vomits when swallowing, also iw has been SOB, no cough or fever. Coronavirus screen: fatigue, nausea, shortness of breath, vomiting. Client presents with at least one sign or symptom that may indicate coronavirus-19. Standard/surgical mask placed on the client. Provider contacted for isolation considerations. Ebola Screen: Patient negative for fever greater than or equal to 101.5 degrees Fahrenheit, and additional compatible Ebola Virus Disease symptoms Patient denies exposure to infectious person. Patient denies travel to an Ebola-affected area in the 21 days before illness onset. No symptoms or risks identified at this time. Risk Assessment: Do you want to hurt yourself or someone else? Patient reports no desire to harm self or others. 14:59 Method Of Arrival: EMS: [facility] iw 14:59 Acuity: JOSIE 3 iw 15:25 Initial Sepsis Screen: Does the patient meet any 2 criteria? No. Patient's initial iw sepsis screen is negative. Does the patient have a suspected source of infection? No. Patient's initial sepsis screen is negative. Onset of symptoms. Historical: - Allergies: 15:25 Codeine; iw 15:25 Cortisone; iw 15:25 Latex, Natural Rubber; iw 15:25 Morphine; iw 15:25 Sulfa (Sulfonamide Antibiotics); iw - Home Meds: 15:25 levothyroxine 75 mcg tab 1 tab once daily [Active]; Nexium 20 mg Oral cpDR 1 cap once iw daily [Active]; Symbicort 80-4.5 mcg/actuation inhalation HFAA 2 puffs 2 times per day [Active]; atorvastatin 20 mg oral tab 1 tab once daily [Active]; Ranexa 500 mg oral Tb12 1 tab 2 times per day [Active]; Linzess 290 mcg oral cap 1 cap once daily [Active]; carvedilol 25 mg oral tab 1 tab 2 times per day [Active]; spironolactone 25 mg Oral tab 1 tab once daily [Active]; trazodone 100 mg Oral tab nightly [Active]; furosemide 20 mg Oral tab 1 tab once daily [Active]; aspirin 81 mg Oral chew 1 tab once daily [Active]; mirtazapine 15 mg Oral TbDL 1 tab once daily [Active]; tramadol 50 mg Oral tab every 4-6 hours [Active]; 06/27 00:04 amiodarone 200 mg Oral tab 1 tab once daily [Active]; mt2 - PMHx: 06/26 15:25 CHF; Hypertension; hyperthyroidism; kidney disease; iw - PSHx: 15:25 double mastectomy; iw 15:27 pacemaker; iw - Immunization history:: Adult Immunizations up to date. - Social history:: Smoking status: Patient/guardian denies using tobacco, the patient reports quitting approximately 10 years ago. Screenin:00 Abuse screen: Denies threats or abuse. Denies injuries from another. Nutritional 10 screening: No deficits noted. Tuberculosis screening: No symptoms or risk factors identified. Fall Risk No fall in past 12 months (0 pts). No secondary diagnosis (0 pts). IV access (20 points). Ambulatory Aid- None/Bed Rest/Nurse Assist (0 pts). Gait- Weak (10 pts.). Mental Status- Oriented to own ability (0 pts). Assessment: 16:00 General: Appears distressed, Behavior is cooperative, appropriate for age. Pain: jr10 Complains of pain in abdomen. Neuro: No deficits noted. Level of Consciousness is awake, alert, obeys commands, Oriented to person, place, time, situation, Appropriate for age Bulb Planter are equal bilaterally Moves all extremities. Speech is normal, Facial symmetry appears normal. Cardiovascular: No deficits noted. Reports shortness of breath, Denies chest pain, Rhythm is atrial pacer with capture. Cardiovascular: Reports pt has pacer/defibrillator noted to left chest wall. Respiratory: Reports shortness of breath cough that is productive, labored breathing since 3 days pt denies chronic use of home O2 Airway is patent Respiratory effort is even, labored, Respiratory pattern is symmetrical, tachypnea Breath sounds are diminished bilaterally. the patient has moderate shortness of breath. GI: Abdomen is non-distended, Bowel sounds present X 4 quads. Abd is soft and non tender X 4 quads. Reports intolerance of fluids, intolerance of food, nausea, vomiting, Patient currently denies diarrhea. : No signs and/or symptoms were reported regarding the genitourinary system. EENT: No signs and/or symptoms were reported regarding the EENT system. Derm: No deficits noted. Musculoskeletal: Reports generalized weakness and fatigue. 19:00 Reassessment: Patient and/or family updated on plan of care and expected duration. Pain mt2 level reassessed. Patient denies pain at this time. General: Appears comfortable, Behavior is cooperative. 20:00 Reassessment: Patient and/or family updated on plan of care and expected duration. Pain mt2 level reassessed. Patient is alert, oriented x 3, equal unlabored respirations, skin warm/dry/pink. Patient denies pain at this time. General: Appears in no apparent distress. comfortable, Behavior is cooperative. 21:20 Reassessment: Patient and/or family updated on plan of care and expected duration. Pain mt2 level reassessed. Patient is alert, oriented x 3, equal unlabored respirations, skin warm/dry/pink. Patient denies pain at this time. Reassessment: PATIENT ADMITTED. 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 General: Appears comfortable, Behavior is cooperative. Vital Signs: 15:15 BP 152 / 76; Pulse 66; Resp 17; Pulse Ox 100% on 3 lpm NC; jr10 15:25 BP 124 / 75; Pulse 66; Resp 20 S; Pulse Ox 100% on 2 lpm NC; Weight 54.43 kg; Height 5 iw ft. 2 in. (157.48 cm); Pain 8/10; 15:45 BP 125 / 75; Pulse 66; Resp 17; Pulse Ox 100% on 3 lpm NC; jr10 16:30 BP 132 / 70; Pulse 65; Resp 21; Pulse Ox 100% on 3 lpm NC; jr10 19:00 BP 133 / 68; Pulse 67; Resp 21; Pulse Ox 100% on 2 lpm NC; Pain 0/10; mt2 20:00 BP 149 / 67; Pulse 77; Resp 19; Pulse Ox 97% 2 lpm ; Pain 0/10; mt2 20:14 Temp 97.8(O); ar5 21:00 BP 145 / 67; Pulse 65; Resp 20; Pulse Ox 99% on 2 lpm NC; Pain 0/10; mt2 15:25 Body Mass Index 21.95 (54.43 kg, 157.48 cm) ED Course: 14:56 Patient arrived in ED. iw 15:00 Triage completed. iw 15:03 Chano Cardenas PA is PHCP. jr8 15:03 Maurice Urena MD is Attending Physician. jr8 15:26 Arm band placed on. iw 15:34 Madelyn Faria, RN is Primary Nurse. iw 16:00 Patient has correct armband on for positive identification. Placed in gown. Bed in low jr10 position. Call light in reach. Side rails up X2. case monitor on. Pulse ox on. NIBP on. 16:07 XRAY Chest (1 view) In Process Unspecified. EDMS 16:10 Inserted saline lock: 20 gauge in left forearm, using aseptic technique. IV is patent, jr10 is intact, with good blood return, Flushed. 16:48 No provider procedures requiring assistance completed. jr10 18:08 Primary Nurse role handed off by Madelyn Faria RN jr10 18:08 Graciela Bailey, ZENOBIA is Primary Nurse. jr10 18:49 CT Abd/Pelvis - IV Contrast Only In Process Unspecified. EDMS 19:17 Report given to ZENOBIA Santiago. jr10 19:23 Primary Nurse role handed off by Graciela Bailey, ZENOBIA mt2 19:23 Pamela Valdez RN is Primary Nurse. mt2 19:58 Paul Lopez is Hospitalizing Provider. jr8 19:58 Notified Nurse Practitioner and/or Physician Scalder of a critical lab result(s), sg elevated D Dimer. 21:30 Patient admitted, IV remains in place. mt2 Administered Medications: 17:45 Drug: NS 0.9% 500 ml Route: IV; Rate: bolus; Site: left wrist; jr10 19:00 Follow up: IV Status: Completed infusion; IV Intake: 1000ml mt2 18:35 Drug: Zofran (Ondansetron) 4 mg Route: IVP; Site: right forearm; jr10 19:00 Follow up: Response: No adverse reaction; Nausea is decreased mt2 18:37 Drug: SOLU-Medrol 125 mg Route: IVP; Site: right forearm; jr10 19:00 Follow up: Response: No adverse reaction mt2 18:41 Drug: Benadryl 25 mg Route: IVP; Site: right forearm; jr10 19:00 Follow up: Response: No adverse reaction mt2 21:25 Drug: Rocephin 1 grams Route: IV; Rate: calculated rate; Site: left forearm; mt2 22:41 Follow up: Response: No adverse reaction; IV Status: Completed infusion; IV Intake: [id number] 22:41 Not Given (PER PROVIDER): NS 0.9% 1000 ml IV at 75 ml/hr continuous mt2 Intake: 19:00 IV: 1000ml; Total: 1000ml. mt2 22:41 IV: 10ml; Total: 1010ml. mt2 Outcome: 20:01 Decision to Hospitalize by Provider. jr8 21:30 Admitted to ER Hold. Please see [facility] for further documentation. mt2 21:30 Condition: stable 21:30 Instructed on the need for admit. 06/27 03:37 Admitted to Med/surg accompanied by tech, room 232, with oxygen, Report called to [facility] yeny abreu 03:38 Patient left the ED. [facility] Signatures: Dispatcher [employer] EDMS Thierno Kaplan RN Madelyn Pantoja RN Chano Bobby PA PA jr8 Cris Israel Marlene, RN RN mt2 Graciela Bailey RN RN jr10 Corrections: (The following items were deleted from the chart) 00:13 06/26 15:25 Home Meds: amiodarone 200 mg Oral tab 1 tab once daily; [facility]
[2020-06-26 20:51] LABS: Urine Bacteria 20-50 /HPF (<20); Urine Culture Reflex Order REFLEXED; Urine Mucus 1+ /HPF (NONE SEEN); Urine RBC <5 /HPF (NONE SEEN)
--- NOTE | 2020-06-26 21:49 | P.HP ---
Certification for Inpatient Patient admitted to: Inpatient With expected LOS: >2 Midnights Practitioner: I am a practitioner with admitting privileges, knowledge of patient current condition, hospital course, and medical plan of care. Services: Services provided to patient in accordance with Admission requirements found in Title 42 Section 412.3 of the Code of Federal Regulations Patient History Date of Service: 06/26/20 Reason for admission: Shortness of breath, abdominal pain History of Present Illness: 79-year-old woman with a history orders as status post nephrectomy, history of breast cancer status post mastectomy, status post chemotherapy years ago, history of cardiac arrhythmia status post ICD presented emergency department with a complaint nausea and vomiting, abdominal pain and shortness of breath. Patient states his symptoms have been present for about a week. She denied any fever, or chest pain. She denied any palpitation. She endorsed constipation. CT abdomen and pelvis done in the ED report hepatic lesions and multiple intra- abdominal and retroperitoneal metastatic masses. Her sodium level is 123. Patient has a history of chronic hyponatremia. She also has microcytic anemia. Her D-dimer is elevated and given that the patient has short of breath, we need to ruled out pulmonary embolus. The patient is admitted for further management. + Allergies codeine Allergy (Verified 10/06/18 21:42) Itching cortisone Allergy (Verified 10/06/18 21:42) Shortness of breath latex Allergy (Verified 10/06/18 21:42) Itching/Hives/Rash morphine Allergy (Verified 10/06/18 21:42) hallucinations prednisone Allergy (Verified 10/06/18 21:42) Nausea/Vomiting Sulfa (Sulfonamide Antibiotics) Allergy (Verified 10/06/18 21:42) Rash Home Medications: Atorvastatin Calcium [Lipitor*] 20 mg PO BEDTIME 12/04/16 Eszopiclone [Lunesta] 2 mg PO BEDTIME 12/04/16 Furosemide [Lasix*] 20 mg PO DAILY 12/04/16 Levothyroxine Sodium 50 mcg PO DAILY 12/04/16 Spironolactone [Aldactone*] 25 mg PO DAILY 12/04/16 Trazodone [Desyrel*] 100 mg PO BEDTIME 12/04/16 carvediloL [Coreg*] 25 mg PO BID 12/04/16 Aspirin 1 tab PO DAILY 10/06/18 Esomeprazole Mag Trihydrate [Nexium] 1 cap PO DAILY 10/06/18 Linaclotide [Linzess] 1 cap PO BEDTIME 10/06/18 Budesonide/Formoterol Fumarate [Symbicort 80-4.5 Mcg Inhaler] 2 puff IH BID 10/07/18 Ceftriaxone Sodium [Ceftriaxone] 1 gm IJ DAILY #14 vial 10/12/18 - Past Medical/Surgical History Diabetic: No -: History of hypertension, cardiac arrhythmias -: Fusions neck -: hyperthyroidism -: COPD -: GERD -: Diverticulitis -: carpal tunnel -: ICD placement -: Patient is had previous left mastectomy, cholecystectomy in the past -: knee surgery -: back surgery -: left kidney removed -: hysterectomy -: bilateral mastectomy -: hernia surgery x 3 -: thyroid surgery Psychosocial/ Personal History: Her about a month ago. - Family History Father -: Diabetes Sister -: Heart disease, Hypertension, Diabetes, Cancer - Social History Smoking Status: Never smoker Alcohol use: No CD- Drugs: No Caffeine use: Yes Review of Systems Other: Except as documented, all other systems reviewed and negative. Physical Examination - Physical Exam General: Alert, In no apparent distress, Mild distress (From shortness of breath.) HEENT: Normocephalic, PERRLA, Mucous membr. moist/pink, Sclerae nonicteric Neck: Supple, JVD not distended Respiratory: Clear to auscultation bilaterally, Normal air movement Cardiovascular: No edema, Regular rate/rhythm, Irregular heart rate/rhythm Capillary refill: <2 Seconds Gastrointestinal: Normal bowel sounds, Non-distended, Tenderness (Diffuse) Musculoskeletal: No swelling, No erythema Integumentary: No rashes, No erythema Neurological: Normal strength at 5/5 x4 extr, Cranial nerves 3-12 intact - Studies Laboratory Data (last 24 hrs) 06/26/20 16:10: PT 12.8 H, INR 1.09 06/26/20 16:10: WBC 12.1 H, Hgb 8.4 L, Hct 25.5 L, Plt Count 536 H 06/26/20 16:10: Sodium 123 L, Potassium 4.9, BUN 17, Creatinine 0.70, Glucose 97, Magnesium 2.4, Total Bilirubin 0.5, AST 40 H, ALT 63, Alkaline Phosphatase 58, Lipase 83 Microbiology Data (last 24 hrs): 06/26/20 16:55 Stool Occult Blood - Final Assessment and Plan - Problems (Diagnosis) (1) Intraabdominal mass Current Visit: Yes Status: Acute (2) Hepatic lesion Current Visit: Yes Status: Acute (3) Hyponatremia Current Visit: Yes Status: Acute (4) History of breast cancer Current Visit: Yes Status: Acute (5) History of renal cell cancer Current Visit: Yes Status: Acute (6) Microcytic anemia Current Visit: Yes Status: Acute (7) History of implantable cardioverter-defibrillator (ICD) placement Current Visit: No Status: Chronic (8) UTI (urinary tract infection) Current Visit: No Status: Acute Qualifiers: Urinary tract infection type: acute cystitis Hematuria presence: without hematuria Qualified Code(s): N30.00 - Acute cystitis without hematuria (9) Elevated d-dimer Current Visit: Yes Status: Acute - Plan Admit to the medical floor Resuscitated with IV normal saline. Hyponatremia could be secondary to SIADH versus dehydration. Trial of normal saline as above. Monitor electrolytes daily. Consult to heme oncologist-Dr. Locke. Monitor CBC and transfuse p.r.n. for hemoglobin less than 7. Continue home heart failure medications Continue amiodarone. IV Rocephin for UTI. Follow urine culture. Will hydrate with IV normal saline for the next 24 and do CTA thorax to rule out pulmonary embolus. Risk of bleeding from full anticoagulation given patient has microcytic anemia outweighs benefit of anticoagulating for pulmonary embolism at this time. Patient will need CT-guided biopsy of intra-abdominal mass for tissue diagnosis. She prefers this to be done as an outpatient. - Advance Directives Does patient have a Living Will: No Does patient have a Durable POA for Healthcare: Yes - Code Status/Comfort Care Code Status Assessed: Yes (Patient would like to discuss DNR with the family.) Code Status: Full Code
[2020-06-26 21:54] LABS: Urine Blood NEGATIVE (NEG); Urine Glucose NEGATIVE (NEG); Urine Protein 1+ (NEG); Urine Specific Gravity 1.025 (1.005-1.030); Urine pH 6.5 (5.0-7.0)
[2020-06-26] MEDS ORDERED: CEFTRIAXONE/SWI 1gm 1 GM/10 ML SYR ONE (22:04)
[2020-06-26] MEDS: NA CHLORIDE 0.9% 1,000 ML IV SCH (23:00)
[2020-06-26] MEDS: carvediloL 25 MG TAB PO SCH (23:50)
[2020-06-26] MEDS ORDERED: ACETAMINOPHEN 500 MG TAB PO PRN (23:53)
[2020-06-27] MEDS ORDERED: carvediloL 6.25 MG TAB ONE
[2020-06-27] MEDS ORDERED: TRAZODONE 50 MG TABLET ONE (00:21)
[2020-06-27] MEDS: HEPARIN 5000 UNIT/ML 1 ML VIAL SQ SCH ×3 (01:55→16:57)
[2020-06-27] MEDS ORDERED: NA CHLORIDE 0.9% 1,000 ML ONE (02:51)
[2020-06-27] MEDS ORDERED: HEPARIN 5000 UNIT/ML 1 ML VIAL ONE (02:52)
[2020-06-27 03:03] VITALS: BMI 21.2
[2020-06-27] MEDS: ONDANSETRON 4 MG/2 ML VIAL IV PRN ×2 (06:03→15:18)
[2020-06-27] MEDS: TRAMADOL HCL 50 MG TAB PO PRN ×2 (06:13)
--- NOTE | 2020-06-27 07:05 | P.PN ---
Subjective Date of Service: 06/27/20 Chief Complaint: Shortness of breath, abdominal pain No event overnight. Patient still appears short of breath. A.m. labs are pending. Patient has been afebrile. Physical Examination - Vital Signs Temperature: 97.0 F Blood Pressure: 148/70 Pulse: 74 Respirations: 16 Pulse Ox (%): 99 - Physical Exam General: In no apparent distress, Other (Awake) HEENT: Mucous membr. moist/pink Neck: Supple, JVD not distended Respiratory: Clear to auscultation bilaterally Cardiovascular: No edema, Regular rate/rhythm, Normal S1 S2 Gastrointestinal: Normal bowel sounds, Soft and benign, Tenderness (Diffuse) Musculoskeletal: No swelling, No erythema Integumentary: No rashes Neurological: Normal strength at 5/5 x4 extr - Studies Laboratory Data (last 24 hrs) 06/26/20 16:10: PT 12.8 H, INR 1.09 06/26/20 16:10: WBC 12.1 H, Hgb 8.4 L, Hct 25.5 L, Plt Count 536 H 06/26/20 16:10: Sodium 123 L, Potassium 4.9, BUN 17, Creatinine 0.70, Glucose 97, Magnesium 2.4, Total Bilirubin 0.5, AST 40 H, ALT 63, Alkaline Phosphatase 58, Lipase 83 Microbiology Data (last 24 hrs): 06/26/20 16:55 Stool Occult Blood - Final Assessment And Plan - Current Problems (Diagnosis) (1) Intraabdominal mass Current Visit: Yes Status: Acute (2) Hepatic lesion Current Visit: Yes Status: Acute (3) Hyponatremia Current Visit: Yes Status: Acute (4) History of breast cancer Current Visit: Yes Status: Acute (5) History of renal cell cancer Current Visit: Yes Status: Acute (6) Microcytic anemia Current Visit: Yes Status: Acute (7) History of implantable cardioverter-defibrillator (ICD) placement Current Visit: No Status: Chronic (8) UTI (urinary tract infection) Current Visit: No Status: Acute Qualifiers: Urinary tract infection type: acute cystitis Hematuria presence: without hematuria Qualified Code(s): N30.00 - Acute cystitis without hematuria (9) Elevated d-dimer Current Visit: Yes Status: Acute - Plan Continue IV NS for hyponatremia Follow electrolytes and renal function. Consult to heme oncologist-patient has followed with Dr. Locke in the past. Monitor CBC and transfuse p.r.n. for hemoglobin less than 7. Continue home heart failure medications Continue amiodarone. IV Rocephin for UTI. Follow urine culture. Will hydrate with IV normal saline for the next 24 and do CTA thorax to rule out pulmonary embolus. Risk of bleeding from full anticoagulation given patient has microcytic anemia outweighs benefit of anticoagulating for pulmonary embolism at this time. Patient will need CT-guided biopsy of intra-abdominal mass for tissue diagnosis. She prefers this to be done as an outpatient. She no decided on DNR. She is currently full code.
[2020-06-27 07:32] LABS: Absolute Lymphocytes (CBC) 0.6 K/uL (0.7-4.9); Basophils % 0.1 % (0-1.3); Hematocrit 26.5 % (36.0-45.0); MPV 7.2 fL (7.6-11.3); RBC Red Blood Cell Count 3.68 M/uL (3.86-4.86)
[2020-06-27 07:51] LABS: Albumin 2.8 g/dL (3.4-5.0); Bilirubin Total 0.4 mg/dL (0.2-1.0); Potassium 4.8 mmol/L (3.5-5.1); Protein, Total 6.6 g/dL (6.4-8.2)
[2020-06-27 08:08] LABS: Protime INR 1.03
[2020-06-27] MEDS: carvediloL 25 MG TAB PO SCH ×2 (09:02→20:04)
[2020-06-27] MEDS: NA CHLORIDE 0.9% 1,000 ML IV SCH (09:03)
[2020-06-27 10:24] LABS: Blood Morphology Comment NOTED (NOT SEEN); Platelet Estimate INCR; Urine White Blood Cell Casts OK
[2020-06-27 10:25] LABS: Anisocytosis 1+; Burr Cells 1+
--- NOTE | 2020-06-27 11:04 | EKG ---
Test Date: 2020-06-26 Test Time: 15:18:33 Methane Gas Collection System Operator: JEROME MEASUREMENT RESULTS: Intervals: Rate: 65 AR: 146 QRSD: 178 QT: 500 QTc: 520 Marcell: P: 92 AR: 146 QRS: 269 T: 92 INTERPRETIVE STATEMENTS: Electronic ventricular pacemaker Compared to ECG 04/20/1999 16:01:00 Sinus rhythm no longer present Ventricular premature complex(es) no longer present Left ventricular hypertrophy no longer present Early repolarization no longer present Electronically Signed On 06-27-20 11:01:52 CDT by Rene Aguilera
[2020-06-27 13:48] LABS: RBC Red Blood Cell Count 3.66 M/uL (3.86-4.86)
[2020-06-27] MEDS ORDERED: ALBUTEROL 2.5 MG/3 ML NEB SOL NEB ONE (13:56)
[2020-06-27] MEDS ORDERED: IPRATROPIUM BROM 0.5MG/2.5ML NEB ONE (13:57)
[2020-06-27 14:32] LABS: Ferritin 41.3 ng/mL (8-388); Folic Acid, (Folate) 5.6 ng/mL (3.1-17.5)
[2020-06-27] MEDS: HYDROCODONE/APAP 5/325 MG TAB PO PRN (15:18)
--- NOTE | 2020-06-27 15:31 | CON ---
Reason For Consultation: Liver metastases. History Of Present Illness: Ms. Faith is well known to us in the Oncology Clinic because of a history of bilateral breast cancer. She was diagnosed with left breast cancer in 1995, underwent mastectomy followed by some chemotherapy and tamoxifen for 5 years. She was followed in our clinic regularly after that when she developed a mass in her right breast in late 2015. 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 Given her age and comorbidities, adjuvant chemotherapy was not recommended and she was followed until 2018 when she was lost to follow up. She presented to the emergency room yesterday with a few weeks history of upper abdominal pain in the epigastric and right upper abdomen, nausea, weakness and shortness of breath. A CT of the abdomen and pelvis done in the emergency room revealed multiple lesions in the liver ranging from a few mm to a cm suggestive of metastases. A 6 cm right subphrenic mass along with omental, mesenteric and retroperitoneal soft tissue masses. Again, all suggestive of malignancy. The uterus was absent, a 34 mm mass in the cul-de-sac was noted. She was hospitalized for pain management and further management of this metastatic malignancy. She gives history of some weight loss, unable to quantify it. She has noted a lack of appetite and easy fatigability. She denies any chest pain, but says she is short of breath and feels like she needs more air. She has a history of COPD and was a long-time smoker. There is no complaints of constipation or diarrhea or rectal bleeding. Denies any headaches, dizziness, or diplopia. Review of Systems: Otherwise unremarkable. Past Medical History: Significant for: 1. Bilateral breast cancer as outlined above. 2. Hypertension. 3. Congestive heart failure. 4. COPD. 5. Chronic kidney disease. 6. Hypothyroidism. Past Surgical History: Significant for: 1. Replacement of a defibrillator in 2016. 2. Previous mastectomies. 3. Cholecystectomy. 4. Left nephrectomy. Medications: Home medications are as follows; Tylenol 500 mg q.4 hours p.r.n. for temperature more than 100, Lipitor 20 mg p.o. at bedtime, carvedilol 25 mg b.i.d., Rocephin 1 g q.24 hours, Zofran 4 mg IV q.6 hours p.r.n., tramadol 50 mg p.o. q.i.d. p.r.n., trazodone 100 mg p.o. at bedtime. Allergies: SHE IS ALLERGIC TO CODEINE, CORTISONE, LATEX, MORPHINE, PREDNISONE. Social And Family History: Ms. Faith is a . She is an ex-smoker, smoked for more than 40 pack years. Denies a history of alcohol use. She currently lives alone but has a son and 2 daughters. One of the daughters lives close by. Family history was not significant for breast or ovarian cancer. Physical Examination: General: On examination, Ms. Faith was in her bed when I saw her earlier today. She has been afebrile. General physical examination reveals that she is a little uncomfortable from the epigastric pain. Vital Signs: T-max was 98 Fahrenheit at midnight last night. Temperature this morning was 97.2, pulse rate 79, respirations 18, blood pressure 145/66, saturating at 100% on 2 L by nasal cannula. HEENT: There is evidence of pallor. No cyanosis or icterus was noted. HEENT examination was unremarkable. Neck: There is no palpable lymphadenopathy in the neck or axilla. Breasts: Examination reveals the surgical absence of both breasts. Neither incision shows evidence of nodularity or axillary lymphadenopathy. Chest: Emphysematous with reduced breath sounds bilaterally. There is no rales or rhonchi heard. Heart: Sounds reveal normal S1 and S2. No gallops or murmurs. Abdomen: Mildly distended with tenderness in the epigastric in the right upper quadrant. The liver is enlarged and palpable about 2 cm below the right subcostal margin. There is no ascites. Bowel sounds were present. Neurologic: Ms. Faith is alert and oriented. No acute deficits were noted. Assessment And Plan: 1. Multiple liver metastases with peritoneal carcinomatosis. Possible primary tumor is most likely to be the triple negative breast cancer of the right breast a couple of years ago. Other primary tumor site such as GI primary could not be ruled out. In my opinion, she is not a candidate for palliative chemotherapy given her poor performance status and comorbidities. I explained to her that my advice would be to consider hospice for pain and symptom management. If she or her family do not want hospice or seek aggressive therapy, then she would need a biopsy of the peritoneal or liver lesion to conform the site of origin of this tumor before any discussion of palliative chemotherapy. We did discuss that this is stage IV cancer and is not curable. I have asked social work and hospice evaluation and will talk to her daughter about this as well. 2. Pain. We will start her on hydrocodone/Tylenol 5/325 1 tablet q.4 hours p.r.n. We will discontinue tramadol since it is not helping with her pain. Suggest you add fentanyl 25 if she requires 4-6 hydrocodone a day or more for pain control. 3. Anemia. It appears that she may have iron deficiency anemia. We will check iron profile and supplement iron while she is in the hospital, it may help her with fatigue and her shortness of breath. 4. Hyponatremia. This is most likely due to poor intake over the past weeks if not months. Would suggest plenty of fluids and that she snack or graze q.2 hours while awake. Thank you for asking us to see Ms. Faith. Please do not hesitate to call me if you have any other questions. JAMIL/LORENZA Voice ID: [id number] Report ID: [id number] PEGGY
[2020-06-27] MEDS: SOD FERRIC GLUC COMPLX/SUCROSE 250 MG in NA CHLORIDE 0.9% 250 ML IV SCH (19:57)
[2020-06-27] MEDS: TRAZODONE 50 MG TABLET PO SCH (20:04)
[2020-06-27] MEDS: ATORVASTATIN 20 MG TAB PO SCH (20:09)
[2020-06-27] MEDS ORDERED: CEFTRIAXONE/SWI 1gm 1 GM/10 ML SYR IV SCH (21:00)
[2020-06-28] MEDS: HEPARIN 5000 UNIT/ML 1 ML VIAL SQ SCH ×3 (00:01→17:24)
[2020-06-28] MEDS: HYDROCODONE/APAP 5/325 MG TAB PO PRN ×2 (00:01→22:03)
[2020-06-28 04:22] LABS: Absolute Lymphocytes (CBC) 2.1 K/uL (0.7-4.9); Hematocrit 30.8 % (36.0-45.0); Lymphocytes % 12.5 % (15.3-44.8); MPV 7.3 fL (7.6-11.3); RBC Red Blood Cell Count 4.26 M/uL (3.86-4.86)
[2020-06-28 04:29] LABS: Potassium 5.4 mmol/L (3.5-5.1)
[2020-06-28] MEDS: NA CHLORIDE 0.9% 1,000 ML IV SCH ×3 (05:53→18:12)
[2020-06-28] MEDS: carvediloL 25 MG TAB PO SCH ×2 (09:34→22:03)
[2020-06-28] MEDS: SOD FERRIC GLUC COMPLX/SUCROSE 250 MG in NA CHLORIDE 0.9% 250 ML IV SCH (09:35)
--- NOTE | 2020-06-28 09:37 | P.PN ---
Subjective Date of Service: 06/28/20 Chief Complaint: Shortness of breath, abdominal pain No event overnight. Patient still appears short of breath. Patient states he feels better today. She has been seen by Oncology. Hospice recommended. Physical Examination - Vital Signs Temperature: 97.5 F Blood Pressure: 121/62 Pulse: 69 Respirations: 16 Pulse Ox (%): 97 - Physical Exam General: In no apparent distress, Other (Awake) HEENT: Mucous membr. moist/pink Neck: Supple, JVD not distended Respiratory: Clear to auscultation bilaterally, Normal air movement Cardiovascular: No edema, Regular rate/rhythm, Normal S1 S2 Gastrointestinal: Normal bowel sounds, Tenderness (Diffuse) Musculoskeletal: No swelling, No erythema Integumentary: No rashes, No erythema Neurological: Other (Nonfocal) - Studies Microbiology Data (last 24 hrs): 06/26/20 19:27 Clean Catch Urine [place] Count - Final >100,000 CFU/ML. 06/26/20 19:27 Clean Catch Urine - Final Escherichia Coli Assessment And Plan - Current Problems (Diagnosis) (1) Intraabdominal mass Current Visit: Yes Status: Acute (2) Hepatic lesion Current Visit: Yes Status: Acute (3) Hyponatremia Current Visit: Yes Status: Acute (4) History of breast cancer Current Visit: Yes Status: Acute (5) History of renal cell cancer Current Visit: Yes Status: Acute (6) Microcytic anemia Current Visit: Yes Status: Acute (7) History of implantable cardioverter-defibrillator (ICD) placement Current Visit: No Status: Chronic (8) UTI (urinary tract infection) Current Visit: No Status: Acute Qualifiers: Urinary tract infection type: acute cystitis Hematuria presence: without hematuria Qualified Code(s): N30.00 - Acute cystitis without hematuria (9) Elevated d-dimer Current Visit: Yes Status: Acute - Plan Hyponatremia is improving with IV hydration Continue IV NS for hyponatremia. Follow electrolytes and renal function. Monitor CBC and transfuse p.r.n. for hemoglobin less than 7. Start iron replacement therapy. Continue home heart failure medications Continue amiodarone. Urine culture is growing E. coli sensitive to Rocephin. Continue IV Rocephin Will order a CTA thorax to rule out pulmonary embolism given her dyspnea and elevated D-dimer and the presence of malignancy. Patient will need CT-guided biopsy of intra-abdominal mass for tissue diagnosis. She prefers this to be done as an outpatient. Patient seen by oncology and hospice is recommend. She no decided on DNR. She is currently full code.
[2020-06-28] MEDS: ONDANSETRON 4 MG/2 ML VIAL IV PRN (09:42)
--- NOTE | 2020-06-28 11:38 | RAD REPORT ---
EXAM DESCRIPTION: CT - Chest For Pe Angio - 06/28/2020 10:04 am CLINICAL HISTORY: Shortness of breath/elevated D-dimer COMPARISON: June 26, 2020 CT abdomen TECHNIQUE: Dynamically enhanced axial 3 mm thick images of the chest were obtained during administra tion of <100> mL Isovue 370 IV contrast. Coronal and oblique reconstruction images were generated and reviewed. Exam utilizes a protocol for optimal evaluation of pulmonary arterial tree. Maximum intensity projections 3D imaging was utilized All CT scans are performed using dose optimization technique as appropriate and may include automated exposure control or mA/KV adjustment according to patient size. FINDINGS: A pulmonary embolus is not seen. A thoracic aortic aneurysm is not noted. A small right pleural effusion. . A pericardial effusion is not seen. Mild tree-in-bud opacities within the lungs. Right mastectomy Refer to the CT abdomen report for abdominal findings IMPRESSION: Negative for a pulmonary embolism.
--- NOTE | 2020-06-28 14:05 | P.DS ---
Admission Date: 06/26/20 Discharge Date: 06/28/20 Discharge Condition: SERIOUS Reason for Admission: Shortness of breath, abdominal pain Hospital Course: Patient is a 79-year-old female with unknown past medical history of breast cancer with metastasis to the kidney and liver who presented to the hospital with generalized weakness. She was found to be hyponatremia with sodium of 123. A CT of the abdomen and pelvis order for abdominal pain showed metastatic liver disease. Hematology has recommended hospice therapy. Vital Signs/Physical Exam: Temp Pulse Resp BP Pulse Ox 97.5 F 69 16 121/62 97 06/28/20 09:37 06/28/20 09:37 06/28/20 09:37 06/28/20 09:37 06/28/20 09:37 General: Alert, Cooperative, Cachectic, Mild distress HEENT: Atraumatic, Normocephalic, EOMI Neck: Supple Respiratory: Inspiratory wheezes Cardiovascular: No edema, Normal pulses, Regular rate/rhythm, Normal S1 S2 Gastrointestinal: Other (Scaphoid abdomen), Tenderness Neurological: Normal speech, Sensation intact, Normal affect Laboratory Data at Discharge: WBC 16.5 K/uL (4.3-10.9) H D 06/28/20 03:50 Hgb 10.3 g/dL (12.0-15.0) L 06/28/20 03:50 Hct 30.8 % (36.0-45.0) L D 06/28/20 03:50 Plt Count 708 K/uL (152-406) H D 06/28/20 03:50 PT 12.2 SECONDS (9.5-12.5) 06/27/20 07:39 INR 1.03 06/27/20 07:39 Sodium 126 mmol/L (136-145) L 06/28/20 03:50 Potassium 5.4 mmol/L (3.5-5.1) H 06/28/20 03:50 BUN 23 mg/dL (7-18) H 06/28/20 03:50 Creatinine 0.86 mg/dL (0.55-1.3) 06/28/20 03:50 Glucose 119 mg/dL (74-106) H 06/28/20 03:50 Phosphorus 3.6 mg/dL (2.5-4.9) 06/27/20 05:48 Magnesium 2.4 mg/dL (1.8-2.4) 06/26/20 16:10 Total Bilirubin 0.4 mg/dL (0.2-1.0) 06/27/20 06:00 AST 41 U/L (15-37) H 06/27/20 06:00 ALT 67 U/L (12-78) 06/27/20 06:00 Alkaline Phosphatase 62 U/L (45-117) 06/27/20 06:00 Lipase 83 U/L (73-393) 06/26/20 16:10 Home Medications: Atorvastatin Calcium [Lipitor*] 20 mg PO BEDTIME 12/04/16 Eszopiclone [Lunesta] 2 mg PO BEDTIME 12/04/16 Furosemide [Lasix*] 20 mg PO DAILY 12/04/16 Levothyroxine Sodium 50 mcg PO DAILY 12/04/16 Spironolactone [Aldactone*] 25 mg PO DAILY 12/04/16 Trazodone [Desyrel*] 100 mg PO BEDTIME 12/04/16 carvediloL [Coreg*] 25 mg PO BID 12/04/16 Aspirin 1 tab PO DAILY 10/06/18 Esomeprazole Mag Trihydrate [Nexium] 1 cap PO DAILY 10/06/18 Linaclotide [Linzess] 1 cap PO BEDTIME 10/06/18 Budesonide/Formoterol Fumarate [Symbicort 80-4.5 Mcg Inhaler] 2 puff IH BID 10/07/18 Albuterol Sulfate [Albuterol Sulfate 0.083% Neb Soln] 2.5 mg IH Q6HR PRN #1 ml NS 06/28/20 Benzonatate [Tessalon Perle] 100 mg PO TID #21 cap 06/28/20 Ipratropium Neb [Atrovent*] 0.5 mg IH Q6HR PRN #1 amp 06/28/20 New Medications: Albuterol Sulfate [Albuterol Sulfate 0.083% Neb Soln] 2.5 mg IH Q6HR PRN #1 ml NS PRN Reason: Shortness Of Breath Ipratropium Neb [Atrovent*] 0.5 mg IH Q6HR PRN #1 amp PRN Reason: Shortness Of Breath Benzonatate [Tessalon Perle] 100 mg PO TID #21 cap
[2020-06-28] MEDS ORDERED: CEFTRIAXONE 1 GM/NS 50 ML 1 GM/50 ML BAG IV SCH (17:37)
[2020-06-28] MEDS: ALBUTEROL 2.5 MG/3 ML NEB SOL NEB PRN (17:40)
[2020-06-28] MEDS ORDERED: Meropenem 500 MG VIAL IV SCH (17:43)
[2020-06-28] MEDS: BENZONATATE 100 MG CAP PO SCH (17:49)
[2020-06-28] MEDS ORDERED: Meropenem 500 MG in NA CHLORIDE 0.9% 100 ML IV SCH (18:00)
[2020-06-28] MEDS: ERTAPENEM SODIUM 1 GM VIAL IM SCH (18:42)
[2020-06-28] MEDS: LIDOCAINE 1% MPF 5 ML VIAL IM PRN (18:44)
--- NOTE | 2020-06-28 20:33 | PN ---
Date of Progress Note: 06/28/2020 Subjective: Ms. Faith was sitting up in bed, attempting to eat lunch when I saw her today. She does not have an appetite and does not like the food. She requested yogurt, which she says she has been able to tolerate lately. Pain control has been much better since yesterday, she says she can still feel some pain in the epigastric area, but it is not as bad as it was since she started on the hydrocodone yesterday. Objective: Vital Signs: Revealed that she has been afebrile. Temperature was 97.4 at noon today, pulse 62, respirations 17, blood pressure was 140/74, saturating at 99% on room air. General Physical Examination: Continues to reveal pallor, but there is no cyanosis or clubbing. Chest: Clear to auscultation. Heart: Sounds reveal normal S1, S2. No gallops or murmurs. Abdomen: Remains tender in the epigastric area, but subjectively, pain is much improved. Neuro: Examination is unchanged. Laboratory Data: From this morning reveals a white count of 16,000, hemoglobin was 10.3 with a platelet count of 708,000. Chemistries reveal a sodium of 126, potassium was elevated at 5.4. Her iron levels were exceedingly low with a transferrin saturation of 5.6% and a ferritin of 41.3. Assessment And Plan: 1. Metastatic malignancy, most probably triple-negative metastatic breast cancer. I had talked to the patient yesterday as well as her daughter Cassidy over the phone and explained to them that in my opinion, this was most likely metastatic breast cancer. She is not a candidate for chemotherapy and her performance status is poor. Hence, I recommended best supportive care in the setting of hospice, which the family agreed with. She has been referred to the train planner and [facility] has been consulted. The family desires that I continue to follow Ms. Faith on hospice for terminal comfort care. 2. Pain. much improved on hydrocodone 5/325 one p.o. q.4-6 hours p.r.n. We will continue on this for now and add long-acting pain medications as necessary. 3. Anemia. She has iron-deficiency anemia, was started on IV Ferrlecit yesterday and has received 2 doses thus far without problems. 4. Leukocytosis. likely secondary to dehydration, pain, and the urinary tract infection due to Escherichia coli. We will defer to the primary team regarding management of the urinary tract infection. The patient may be discharged when medically acceptable to the admitting team. I will follow her on [facility]. AP/MODL Voice ID: [id number] Report ID: [id number] PEGGY
[2020-06-28] MEDS: ATORVASTATIN 20 MG TAB PO SCH (22:04)
[2020-06-28] MEDS: TRAZODONE 50 MG TABLET PO SCH (22:04)
[2020-06-29] MEDS: HEPARIN 5000 UNIT/ML 1 ML VIAL SQ SCH ×3 (01:42→16:47)
[2020-06-29] MEDS: NA CHLORIDE 0.9% 1,000 ML IV SCH ×3 (01:53→16:46)
[2020-06-29] MEDS: HYDROCODONE/APAP 5/325 MG TAB PO PRN ×4 (04:41→22:13)
[2020-06-29 05:30] LABS: Basophils % 0.7 % (0-1.3); Hematocrit 26.6 % (36.0-45.0); Lymphocytes % 18.7 % (15.3-44.8); MPV 6.8 fL (7.6-11.3); RBC Red Blood Cell Count 3.65 M/uL (3.86-4.86)
[2020-06-29 06:04] LABS: Potassium 4.7 mmol/L (3.5-5.1)
[2020-06-29] MEDS: ERTAPENEM SODIUM 1 GM VIAL IM SCH (09:00)
[2020-06-29] MEDS: SOD FERRIC GLUC COMPLX/SUCROSE 250 MG in NA CHLORIDE 0.9% 250 ML IV SCH (09:55)
[2020-06-29] MEDS: ALBUTEROL 2.5 MG/3 ML NEB SOL NEB PRN ×3 (09:55→23:20)
[2020-06-29] MEDS: carvediloL 25 MG TAB PO SCH ×2 (09:56→22:13)
[2020-06-29] MEDS: BENZONATATE 100 MG CAP PO SCH ×3 (09:57→22:13)
[2020-06-29] MEDS: LIDOCAINE 1% MPF 5 ML VIAL IM PRN (10:05)
--- NOTE | 2020-06-29 15:41 | P.PN ---
Subjective Date of Service: 06/29/20 Chief Complaint: Shortness of breath, abdominal pain Subjective: Improving (Patient is feeling better. Denies dysuria or urinary retention. Afebrile overnight. She is staying to receive an additional dose of ertapenem before discharge tomorrow) Physical Examination - Vital Signs Temperature: 97.4 F Blood Pressure: 112/62 Pulse: 61 Respirations: 17 Pulse Ox (%): 97 - Physical Exam General: Alert, In no apparent distress, Cooperative, Cachectic HEENT: Atraumatic, Normocephalic, EOMI Neck: Supple Respiratory: Diminished, Expiratory wheezes Cardiovascular: Normal pulses, Regular rate/rhythm, Normal S1 S2 Gastrointestinal: Normal bowel sounds, Soft and benign, Non-distended Musculoskeletal: No clubbing, No swelling, No contractures, No erythema, No tenderness, No warmth Integumentary: No rashes, No breakdown, No significant lesion, No tenderness/swelling, No erythema, No warmth, No cyanosis Neurological: Normal speech, Sensation intact, Normal affect Assessment & Plan - Problems (Diagnosis) (1) Hepatic lesion Current Visit: Yes Status: Acute (2) History of breast cancer Current Visit: Yes Status: Acute (3) History of renal cell cancer Current Visit: Yes Status: Acute (4) Hyponatremia Current Visit: Yes Status: Acute (5) Intraabdominal mass Current Visit: Yes Status: Acute (6) Microcytic anemia Current Visit: Yes Status: Acute Physician Review Additional Text: Assessment This is a 79-year-old female with unknown past medical history of breast cancer who presented to the hospital with abdominal pain, and generalized weakness. She was found to have hyponatremia. A CT abdomen and pelvis revealed multiple intra-abdominal mass concerning for metastatic disease to the liver. Dermatology recommended hospice. Patient is also being treated for UTI with urine culture yielding multi-drug resistant E coli. Her antibiotics were changed to ertapenem, greatly improved her symptoms. She is also having shortness of breath, requiring up titration of her O2 levels. 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
[2020-06-29] MEDS: TRAZODONE 50 MG TABLET PO SCH (22:13)
[2020-06-29] MEDS: ATORVASTATIN 20 MG TAB PO SCH (22:13)
[2020-06-30] MEDS: HEPARIN 5000 UNIT/ML 1 ML VIAL SQ SCH ×2 (02:50→09:53)
[2020-06-30] MEDS: ALBUTEROL 2.5 MG/3 ML NEB SOL NEB PRN ×3 (03:40→13:46)
[2020-06-30] MEDS: carvediloL 25 MG TAB PO SCH (09:00)
[2020-06-30] MEDS: HYDROCODONE/APAP 5/325 MG TAB PO PRN (09:52)
[2020-06-30] MEDS: SOD FERRIC GLUC COMPLX/SUCROSE 250 MG in NA CHLORIDE 0.9% 250 ML IV SCH (09:54)
[2020-06-30] MEDS: ERTAPENEM SODIUM 1 GM VIAL IM SCH (09:55)
[2020-06-30] MEDS: BENZONATATE 100 MG CAP PO SCH ×2 (09:57→14:14)
[2020-06-30] MEDS: LIDOCAINE 1% MPF 5 ML VIAL IM PRN (10:07)
[2020-06-30 12:47] VITALS: BP 102/59; TEMP 96.9
[2020-06-30 14:05] VITALS: O2SAT 100
--- NOTE | 2020-06-30 14:35 | P.DS ---
Admission Date: 06/26/20 Discharge Date: 06/30/20 Disposition: HOSPICE-HOME Discharge Condition: SERIOUS Reason for Admission: Shortness of breath, abdominal pain - Problems (1) Hepatic lesion Current Visit: Yes Status: Acute (2) History of breast cancer Current Visit: Yes Status: Acute (3) History of renal cell cancer Current Visit: Yes Status: Acute (4) Hyponatremia Current Visit: Yes Status: Acute (5) Intraabdominal mass Current Visit: Yes Status: Acute (6) Microcytic anemia Current Visit: Yes Status: Acute Hospital Course: Patient is a 79-year-old female with unknown past medical history of breast cancer with metastasis to the kidney and liver who presented to the hospital with generalized weakness and abdominal pain. She was found to be hyponatremia with sodium of 123, and UTI with urine cultures yielding E. coli and pseudomonas. She responded to ertapenem. A CT of the abdomen and pelvis ordered for abdominal pain showed metastatic liver disease. Hematology has recommended hospice therapy. Arrangements were made to home O2 and duonebs. Vital Signs/Physical Exam: Temp Pulse Resp BP Pulse Ox 96.9 F 63 16 102/59 L 99 06/30/20 12:00 06/30/20 12:00 06/30/20 12:00 06/30/20 12:00 06/30/20 12:00 General: Alert, In no apparent distress, Cooperative, Cachectic HEENT: Atraumatic, Normocephalic, EOMI Neck: Supple Respiratory: Diminished, Other (mild wheezing) Cardiovascular: No edema, Normal pulses, Regular rate/rhythm, Normal S1 S2 Gastrointestinal: Tenderness Musculoskeletal: No clubbing, No swelling, No contractures, No erythema, No tenderness, No warmth Neurological: Normal speech, Sensation intact, Normal affect Laboratory Data at Discharge: WBC Cancelled 06/29/20 06:00 Hgb Cancelled 06/29/20 06:00 Hct Cancelled 06/29/20 06:00 Plt Count Cancelled 06/29/20 06:00 PT 12.2 SECONDS (9.5-12.5) 06/27/20 07:39 INR 1.03 06/27/20 07:39 Sodium 129 mmol/L (136-145) L 06/29/20 05:09 Potassium 4.7 mmol/L (3.5-5.1) 06/29/20 05:09 BUN 19 mg/dL (7-18) H 06/29/20 05:09 Creatinine 0.82 mg/dL (0.55-1.3) 06/29/20 05:09 Glucose 92 mg/dL (74-106) 06/29/20 05:09 Phosphorus 3.6 mg/dL (2.5-4.9) 06/27/20 05:48 Magnesium 2.4 mg/dL (1.8-2.4) 06/26/20 16:10 Total Bilirubin 0.4 mg/dL (0.2-1.0) 06/27/20 06:00 AST 41 U/L (15-37) H 06/27/20 06:00 ALT 67 U/L (12-78) 06/27/20 06:00 Alkaline Phosphatase 62 U/L (45-117) 06/27/20 06:00 Lipase 83 U/L (73-393) 06/26/20 16:10 Home Medications: Atorvastatin Calcium [Lipitor*] 20 mg PO BEDTIME 12/04/16 Eszopiclone [Lunesta] 2 mg PO BEDTIME 12/04/16 Furosemide [Lasix*] 20 mg PO DAILY 12/04/16 Levothyroxine Sodium 50 mcg PO DAILY 12/04/16 Spironolactone [Aldactone*] 25 mg PO DAILY 12/04/16 Trazodone [Desyrel*] 100 mg PO BEDTIME 12/04/16 carvediloL [Coreg*] 25 mg PO BID 12/04/16 Aspirin 1 tab PO DAILY 10/06/18 Esomeprazole Mag Trihydrate [Nexium] 1 cap PO DAILY 10/06/18 Linaclotide [Linzess] 1 cap PO BEDTIME 10/06/18 Budesonide/Formoterol Fumarate [Symbicort 80-4.5 Mcg Inhaler] 2 puff IH BID 10/07/18 Albuterol Sulfate [Albuterol Sulfate 0.083% Neb Soln] 2.5 mg IH Q6HR PRN #1 ml NS 06/28/20 Benzonatate [Tessalon Perle] 100 mg PO TID #21 cap 06/28/20 Ipratropium Neb [Atrovent*] 0.5 mg IH Q6HR PRN #1 amp 06/28/20 Ertapenem Na [Invanz] 1 gm IM DAILY 3 Days #3 vial 06/30/20 New Medications: Albuterol Sulfate [Albuterol Sulfate 0.083% Neb Soln] 2.5 mg IH Q6HR PRN #1 ml NS PRN Reason: Shortness Of Breath Ipratropium Neb [Atrovent*] 0.5 mg IH Q6HR PRN #1 amp PRN Reason: Shortness Of Breath Ertapenem Na [Invanz] 1 gm IM DAILY 3 Days #3 vial Benzonatate [Tessalon Perle] 100 mg PO TID #21 cap
== END 2020-06-30 15:08 | disposition hospice, home (50) | DRG 436 ==
LOC: ER 14:47 → ERHOLD 22:46 → 2ND 06-27 03:04
PROVIDERS: ADMIT Internal Medicine; ATTEND Internal Medicine
DX: C78.7 Secondary malignant neoplasm of liver and intrahepatic bile duct (principal); E87.1 Hypo-osmolality and hyponatremia; N30.00 Acute cystitis without hematuria; C78.6 Secondary malignant neoplasm of retroperitoneum and peritoneum; R64 Cachexia; D50.9 Iron deficiency anemia, unspecified; Z88.5 Allergy status to narcotic agent; Z88.8 Allergy status to other drugs, medicaments and biological substances; Z88.1 Allergy status to other antibiotic agents; Z91.040 Latex allergy status; Z79.890 Hormone replacement therapy; Z79.82 Long term (current) use of aspirin; Z79.899 Other long term (current) drug therapy; E03.9 Hypothyroidism, unspecified; J44.9 Chronic obstructive pulmonary disease, unspecified; K21.9 Gastro-esophageal reflux disease without esophagitis; Z95.810 Presence of automatic (implantable) cardiac defibrillator; Z90.49 Acquired absence of other specified parts of digestive tract; Z90.13 Acquired absence of bilateral breasts and nipples; R19.00 Intra-abdominal and pelvic swelling, mass and lump, unspecified site; Z20.828 Contact with and (suspected) exposure to other viral communicable diseases; R06.02 Shortness of breath; Z79.51 Long term (current) use of inhaled steroids; I12.9 Hypertensive chronic kidney disease with stage 1 through stage 4 chronic kidney disease, or unspecified chronic kidney disease; N18.9 Chronic kidney disease, unspecified; D72.829 Elevated white blood cell count, unspecified; Z85.3 Personal history of malignant neoplasm of breast; Z68.21 Body mass index [BMI] 21.0-21.9, adult; B96.20 Unspecified Escherichia coli [E. coli] as the cause of diseases classified elsewhere; B96.5 Pseudomonas (aeruginosa) (mallei) (pseudomallei) as the cause of diseases classified elsewhere
CPT/HCPCS: 36415; 71045; 71275; 74177; 80048; 80053; 80076; 81003; 81015; 82272; 82607; 82728; 82746; 83540; 83690; 83735; 83880; 84100; 84466; 84484; 85025; 85044; 85379; 85610; 87077; 87086; 87088; 87186; 93005; 94640; 94760; 96361; 96365; 96375; 97110; 97161; 97530; 99285; J0696; J1200; J1335; J1644; J2405; J2916; J2930; J7030; J7050; Q9967; U0002